=== PATIENT | female | born 1955 | race Caucasian/White ===

== ENCOUNTER 2017-01-04 12:11 | Inpatient (IN) | payer OTHER ==
[~2017-01-04] VITALS: Ht 167.6 cm; Wt 74.0 kg
[~2017-01-04 12:11] MED LIST: LEXA20TA PO; LISI-363 PO; PROT40TA PO
[2017-01-04 12:12] VITALS: BP 195/85; PULSE 52; RESP 24; TEMP 97.4; O2SAT 99
[2017-01-04 12:15] VITALS: BP 132/70; PULSE 64; RESP 24; O2SAT 91
[2017-01-04] MEDS ORDERED: PANT40TA3 PO (12:25)
[2017-01-04] MEDS ORDERED: FOLI400T PO (12:25)
[2017-01-04] MEDS ORDERED: METH5INJ (12:25)
[2017-01-04] MEDS ORDERED: ESCI20TA PO (12:27)
[2017-01-04] MEDS ORDERED: LISI-515 PO (12:27)
[2017-01-04] MEDS ORDERED: CHOL5000 PO (12:27)
[2017-01-04] MEDS ORDERED: HYDR39SU2 RECTAL (12:27)
[2017-01-04] MEDS ORDERED: SODIUM CHLOR 0.9% 1000 ML INJ 1,000 ML IV SCH (12:35)
--- NOTE | 2017-01-04 12:36 | PD ---
HPI Chief Complaint: GI Complaint Time Seen by Provider: 12:36 Travel History International Travel<30 days: No Contact w/Intl Traveler<30days: No Traveled to known affect area: No History of Present Illness HPI 61-year-old female presents to the emergency department via EMS for evaluation of nausea, vomiting, dizziness, severe abdominal pain that started 1 hour ago. She states she started started with dizziness about one hour ago which was consistent to prior vertigo that she has had in the past. She states that then she started with some paresthesias to her bilateral hands and feet. She states that then she started with nausea and abdominal pain. She states abdominal pain is diffuse. She denies a prior history of similar abdominal pain. She states she vomited times one in the ambulance. She received 4 mg of Zofran via EMS. Patient denies any chest pain, but does state that she feels short of breath. She does report a history of gastric bypass in [place] [address] Guallpa. Patient also reports history of gastric ulcers, hypertension, CVA in 1994 and , rheumatoid arthritis. Patient denies any diarrhea or constipation. She reports a normal bowel movement yesterday without blood in her stool. Patient also reports history of appendectomy and hysterectomy. Patient also does report a history of diverticulitis in the past. PFSH Past Medical History Depression: Yes Cancer: Yes (BCC) Cardiovascular Problems: No Cerebrovascular Accident: Yes Endocrine: No Gastrointestinal Disorders: Yes (GERD, DIVERTICULITIS, HX GALLBADDER PAIN) GERD: Yes Genitourinary: No Hepatitis: No Hiatal Hernia: Yes Hypertension: Yes Immune Disorder: Yes (R/A) Medical other: Yes (GENITAL HERPES) Musculoskeletal: Yes (R/A, KNEES) Neurologic: Yes (TIA) Psychiatric: Yes (DEPRESSION, ANXIETY) Reproductive: Yes (HYSTERECTOMY) Respiratory: Yes (MILD SLEEP APNEA) Immunizations Current: Yes Thyroid Disease: No Tetanus Vaccination: < 5 Years Influenza Vaccination: Yes Past Surgical History Abdominal Surgery: Yes (APPY) Appendectomy: Yes Gynecologic Surgery: Yes (HYSTERECTOMY) Hysterectomy: Yes Social History Alcohol Use: Yes (RARE) Tobacco Use: No Substance Use: No Allergies-Medications (Allergen,Severity, Reaction): Coded Allergies: Flagyl (Unverified Allergy, Severe, HEADACHE, 01/04/17) Sulfa (Verified Allergy, Severe, RASH, 01/04/17) Morphine (Verified Allergy, Mild, Headache, 01/04/17) Reported Meds & Prescriptions Reported Meds & Active Scripts Active Reported Vitamin D3 (Cholecalciferol) 5,000 Unit Cap 5,000 Units PO DAILY Hydrocortisone Acetate Supp 25 Mg Supp 25 Mg RECTAL BID Lisinopril 20 Mg Tab 20 Mg PO DAILY Escitalopram (Escitalopram Oxalate) 20 Mg Tab 20 Mg PO DAILY Folic Acid 400 Mcg Tab 400 Mcg PO DAILY Pantoprazole (Pantoprazole Sodium) 40 Mg Tab 40 Mg PO DAILY Methotrexate Inj 50 Mg/2 Ml Inj Review of Systems Except as stated in HPI: all other systems reviewed are Neg Physical Exam Narrative GENERAL: Well-developed well-nourished female patient. Afebrile. Patient is moaning in pain and holding her abdomen. SKIN: Warm and dry. HEAD: Normocephalic. Atraumatic. EYES: No scleral icterus. No injection or drainage. NECK: Supple, trachea midline. No JVD or lymphadenopathy. CARDIOVASCULAR: Regular rate and rhythm without murmurs, gallops, or rubs. RESPIRATORY: Breath sounds equal bilaterally. No accessory muscle use. Lungs sounds are clear to auscultation. GASTROINTESTINAL: Abdomen soft and nondistended. Patient has diffuse tenderness to palpation. MUSCULOSKELETAL: No cyanosis, or edema. BACK: Nontender without obvious deformity. No CVA tenderness. Data Data Last Documented VS Vital Signs Date Time Temp Pulse Resp B/P Pulse Ox O2 Delivery O2 Flow Rate FiO2 01/04/17 13:07 99 Room Air 01/04/17 12:15 64 24 132/70 01/04/17 12:12 97.4 Orders Complete Blood Count With Diff (01/04/17 12:35) Comprehensive Metabolic Panel (01/04/17 12:35) Lipase (01/04/17 12:35) Urinalysis - C+S If Indicated (01/04/17 12:35) Ct Abd/Pel W Iv Contrast(Rout) (01/04/17 12:35) Iv Access Insert/Monitor (01/04/17 12:35) Ecg Monitoring (01/04/17 12:35) Oximetry (01/04/17 12:35) Sodium Chlor 0.9% 1000 Ml Inj (Ns 1000 M (01/04/17 12:35) Sodium Chloride 0.9% Flush (Ns Flush) (01/04/17 12:45) Electrocardiogram (01/04/17 12:35) Creatine Kinase (Cpk) (01/04/17 12:37) Troponin I (01/04/17 12:37) Chest, Single Ap (01/04/17 ) Hydromorphone Pf Inj (Dilaudid Pf Inj) (01/04/17 12:45) Ondansetron Inj (Zofran Inj) (01/04/17 13:00) Iohexol 350 Inj (Omnipaque 350 Inj) (01/04/17 13:53) Labs Laboratory Tests Test 01/04/17 01/04/17 12:53 14:09 White Blood Count 6.3 TH/MM3 Red Blood Count 4.01 MIL/MM3 Hemoglobin 12.9 GM/DL Hematocrit 36.9 % Mean Corpuscular Volume 91.9 FL Mean Corpuscular Hemoglobin 32.0 PG Mean Corpuscular Hemoglobin 34.8 % Concent Red Cell Distribution Width 14.2 % Platelet Count 202 TH/MM3 Mean Platelet Volume 9.8 FL Neutrophils (%) (Auto) 80.8 % Lymphocytes (%) (Auto) 14.7 % Monocytes (%) (Auto) 3.9 % Eosinophils (%) (Auto) 0.3 % Basophils (%) (Auto) 0.3 % Neutrophils # (Auto) 5.1 TH/MM3 Lymphocytes # (Auto) 0.9 TH/MM3 Monocytes # (Auto) 0.2 TH/MM3 Eosinophils # (Auto) 0.0 TH/MM3 Basophils # (Auto) 0.0 TH/MM3 CBC Comment DIFF FINAL Differential Comment Sodium Level 142 MEQ/L Potassium Level 3.3 MEQ/L Chloride Level 108 MEQ/L Carbon Dioxide Level 23.2 MEQ/L Anion Gap 11 MEQ/L Blood Urea Nitrogen 14 MG/DL Creatinine 0.73 MG/DL Estimat Glomerular Filtration 81 ML/MIN Rate Random Glucose 117 MG/DL Calcium Level 9.0 MG/DL Total Bilirubin 0.7 MG/DL Aspartate Amino Transf 17 U/L (AST/SGOT) Alanine Aminotransferase 31 U/L (ALT/SGPT) Alkaline Phosphatase 109 U/L Total Creatine Kinase 39 U/L Troponin I LESS THAN 0.02 NG/ML Total Protein 6.5 GM/DL Albumin 3.9 GM/DL Lipase 119 U/L Urine Color YELLOW Urine Turbidity CLEAR Urine pH 6.5 Urine Specific [place] 1.026 Urine Protein NEG mg/dL Urine Glucose (UA) NEG mg/dL Urine Ketones 40 mg/dL Urine Occult Blood NEG Urine Nitrite NEG Urine Bilirubin NEG Urine Urobilinogen LESS THAN 2.0 MG/DL Urine Leukocyte Esterase SMALL Urine RBC 3 /hpf Urine WBC 2 /hpf Urine Squamous Epithelial <1 /hpf Cells Urine Bacteria RARE /hpf Urine Mucus FEW /lpf Microscopic Urinalysis Comment CULT NOT INDICATED MDM Medical Decision Making Medical Screen Exam Complete: Yes Emergency Medical Condition: Yes Medical Record Reviewed: Yes Interpretation(s) Abdomen/Pelvis CT 01/04/17 1235 Signed Impressions: Service Date/Time: Wednesday, January 04, 2017 13:42 - CONCLUSION: Sludge in the gallbladder. Mild induration of fatty tissues adjacent to minimally distended small bowel loop in the right pelvis and minimal dependent free pelvic fluid. This could potentially be an inflammatory process of bowel or an early obstructive process. Clinical and imaging followup recommended as appropriate. Wesley Cruz MD Chest X-Ray 01/04/17 0000 Signed Impressions: Service Date/Time: Wednesday, January 04, 2017 13:28 - CONCLUSION: No acute disease. Jeferson Blackmon MD Differential Diagnosis Diverticulitis versus small bowel obstruction versus UTI versus gastroenteritis versus electrolyte abnormality versus pyelonephritis Narrative Course 61-year-old female presents to the emergency department via EMS for evaluation of dizziness, paresthesias to her hands and feet, shortness of breath, severe abdominal pain, nausea. EKG, CBC, CMP, lipase, UA, CK, troponin are ordered and pending. CT the abdomen/pelvis with IV contrast and chest x-ray ordered and pending. According to the chart, the patient does have allergy to morphine. She states it gives her a headache. Patient denies any anaphylactic reaction. IV access established. Patient is given Dilaudid 0.5 mg IV, Zofran 4 mg IV, normal saline 1 L IV bolus. EKG shows sinus bradycardia, no ST elevation. CBC shows no acute abnormality. CMP with hypokalemia 3.3, glucose 117. Lipase is 119. CK is 39. Troponin is less than 0.02. UA shows small leukocyte esterase. Chest x-ray shows no acute disease. CT abdomen/pelvis shows sludge in the gallbladder; mild induration of fatty tissues adjacent to minimally distended small bowel loop in the right pelvis and minimal dependent free pelvic fluid. This could potentially be an inflammatory process of bowel or an early obstructive process. Clinical and imaging followup recommended as appropriate. I discussed the case with my attending physician, Dr. Bueno, who also examined the patient. The patient will be brought into the hospital for 23 hour observation for early small bowel obstruction. The patient is agreeable. Dr. Biggs accepted admission. Diagnosis Primary Impression: Small bowel obstruction Admitting Information Admitting Physician Requests: Observation Vanesa Ivory Jan 04, 2017 12:36
[2017-01-04] MEDS ORDERED: HYDROmorphone HCL PF 1 MG/ML VIAL IVS ONE (12:45)
[2017-01-04] MEDS ORDERED: SODIUM CHLORIDE 0.9% FLUSH 5 ML FLUSH IVF PRN (12:45)
[2017-01-04] MEDS ORDERED: ONDANSETRON HCL 4 MG/2 ML VIAL IV PUSH ONE (13:00)
[2017-01-04 13:07] VITALS: O2SAT 99
[2017-01-04 13:09] LABS: AUTOMATED NEUTROPHIL # 5.1 TH/MM3 (1.8-7.7); BASOPHIL % 0.3 % (0.0-2.0); EOSINOPHIL % 0.3 % (0.0-4.0); HEMATOCRIT 36.9 % (35.0-46.0); HEMO FLAGS DIFF FINAL; LYMPH % 14.7 % (9.0-44.0); LYMPHOCYTE # 0.9 TH/MM3 (1.0-4.8); MEAN CELL VOLUME 91.9 FL (80.0-100.0); MEAN CORPUSCULAR HGB CONC 34.8 % (32.0-36.0); MONO % 3.9 % (0.0-8.0); NEUT % 80.8 % (16.0-70.0); PLATELET COUNT 202 TH/MM3 (150-450); RED BLOOD COUNT 4.01 MIL/MM3 (4.00-5.30); RED CELL DISTRIBUTION WIDTH 14.2 % (11.6-17.2); WHITE BLOOD COUNT 6.3 TH/MM3 (4.0-11.0)
[2017-01-04 13:29] LABS: ALT (GPT) 31 U/L (10-53); ANION GAP 11 MEQ/L (5-15); AST (GOT) 17 U/L (15-37); BICARBONATE 23.2 MEQ/L (21.0-32.0); BLOOD UREA NITROGEN 14 MG/DL (7-18); CHLORIDE 108 MEQ/L (98-107); GLOMERULAR FILTRATION RATE 81 ML/MIN (>89); POTASSIUM 3.3 MEQ/L (3.5-5.1); SODIUM (NA) 142 MEQ/L (136-145)
[2017-01-04 13:32] LABS: ALKALINE PHOSPHATASE 109 U/L (45-117); TOTAL BILIRUBIN ADULT 0.7 MG/DL (0.2-1.0)
[2017-01-04 13:41] LABS: CREATINE KINASE 39 U/L (26-192)
--- NOTE | 2017-01-04 13:50 | RADRPT ---
EXAM DATE/TIME: 01/04/2017 13:28 [facility] COMPARISON: No previous studies available for comparison. INDICATIONS : Shortness of breath. MEDICAL HISTORY : None. SURGICAL HISTORY : None. ENCOUNTER: Initial ACUITY: 1 day PAIN SCORE: 0/10 LOCATION: Bilateral chest FINDINGS: A single view of the chest demonstrates the lungs to be symmetrically aerated without evidence of mas s, infiltrate or effusion. The cardiomediastinal contours are unremarkable. Osseous structures are intact. CONCLUSION: No acute disease. Jeferson Blackmon MD on January 04, 2017 at 13:49 Board Certified Radiologist. This report was verified electronically.
[2017-01-04] MEDS ORDERED: IOHEXOL 350 MG/ML 10 ML VIAL (for RAD DIAG) IV ONE (13:53)
[2017-01-04 14:30] LABS: BACTERIA, URINE RARE /hpf; BLOOD, URINE NEG (NEG); COMMENT (UR) CULT NOT INDICATED; CULTURE IF INDICATED CULT NOT INDICATED; GLUCOSE,URINE NEG (NEG); KETONE, URINE 40 mg/dL (NEG); MUCUS URINE FEW /lpf (OCC); NITRITE,URINE NEG (NEG); PH, URINE 6.5 (5.0-8.5); SQUAMOUS EPITHELIAL CELL URINE <1 /hpf (0-5); URINE COLOR YELLOW (YELLW/STRAW)
--- NOTE | 2017-01-04 15:10 | RADRPT ---
EXAM DATE/TIME: 01/04/2017 13:42 [facility] COMPARISON: CT ABDOMEN & PELVIS W CONTRAST, September 15, 2012, 15:08. INDICATIONS : Nausea and vomiting, weakness and dizziness. IV CONTRAST: 95 cc Omnipaque 350 (iohexol) IV ORAL CONTRAST: No oral contrast ingested. RADIATION DOSE: 9.96 CTDIvol (mGy) MEDICAL HISTORY : Stroke. Gastroesophageal reflux disease. Hypertension.Rheumatoid arthritis. SURGICAL HISTORY : Appendectomy. Hysterectomy. ENCOUNTER: Initial ACUITY: 1 day PAIN SCALE: 0/10 LOCATION: abdomen. TECHNIQUE: Volumetric scanning of the abdomen and pelvis was performed. Using automated exposure control and ad justment of the mA and/or kV according to patient size, radiation dose was kept as low as reasonably achievable to obtain optimal diagnostic quality images. FINDINGS: LOWER LUNGS: The visualized lower lungs are clear. LIVER: Homogeneous density without lesion. There is no dilation of the biliary tree. No calcified gallston es. Layering sludge in the gallbladder SPLEEN: Normal size without lesion. PANCREAS: Within normal limits. KIDNEYS: Small bilateral renal cysts. ADRENAL GLANDS: Within normal limits. VASCULAR: There is no aortic aneurysm. BOWEL/MESENTERY: Evidence of previous gastric surgery. The small bowel is nondilated. There is a loop in the low right pelvis which is notable for slight adjacent induration and there is minimal adjacent free pelvic flu id. The colon is normal in caliber throughout with occasional diverticula present. There is no eviden ce of extraluminal gas. ABDOMINAL WALL: Within normal limits. RETROPERITONEUM: There is no lymphadenopathy. BLADDER: No wall thickening or mass. REPRODUCTIVE: Uterus surgically absent. INGUINAL: There is no lymphadenopathy or hernia. MUSCULOSKELETAL: Degenerative changes in the spine. CONCLUSION: Sludge in the gallbladder. Mild induration of fatty tissues adjacent to minimally distended small bowel loop in the right pelvis and minimal dependent free pelvic fluid. This could potentially be an inflammatory process of bowel or an early obstructive process. Clinical and imaging followup recommended as appropriate. Wesley Cruz MD on January 04, 2017 at 14:18 Board Certified Radiologist. This report was verified electronically.
--- NOTE | 2017-01-04 16:15 | PD ---
Data Data Last Documented VS Vital Signs Date Time Temp Pulse Resp B/P Pulse Ox O2 Delivery O2 Flow Rate FiO2 01/04/17 13:07 99 Room Air 01/04/17 12:15 64 24 132/70 01/04/17 12:12 97.4 Orders Complete Blood Count With Diff (01/04/17 12:35) Comprehensive Metabolic Panel (01/04/17 12:35) Lipase (01/04/17 12:35) Urinalysis - C+S If Indicated (01/04/17 12:35) Ct Abd/Pel W Iv Contrast(Rout) (01/04/17 12:35) Iv Access Insert/Monitor (01/04/17 12:35) Ecg Monitoring (01/04/17 12:35) Oximetry (01/04/17 12:35) Sodium Chlor 0.9% 1000 Ml Inj (Ns 1000 M (01/04/17 12:35) Sodium Chloride 0.9% Flush (Ns Flush) (01/04/17 12:45) Electrocardiogram (01/04/17 12:35) Creatine Kinase (Cpk) (01/04/17 12:37) Troponin I (01/04/17 12:37) Chest, Single Ap (01/04/17 ) Hydromorphone Pf Inj (Dilaudid Pf Inj) (01/04/17 12:45) Ondansetron Inj (Zofran Inj) (01/04/17 13:00) Iohexol 350 Inj (Omnipaque 350 Inj) (01/04/17 13:53) Admit Order (Ed Use Only) (01/04/17 15:49) Diet Npo Except Meds (01/04/17 Dinner) Place In Observation (01/04/17 ) Activity Oob With Assistance (01/04/17 15:52) Scd Bilateral/Knee High CRISTINA.QSHIFT (01/04/17 15:52) Vital Signs (Adult) CRISTINA.Q4H (01/04/17 15:52) Labs Laboratory Tests Test 01/04/17 01/04/17 12:53 14:09 White Blood Count 6.3 TH/MM3 Red Blood Count 4.01 MIL/MM3 Hemoglobin 12.9 GM/DL Hematocrit 36.9 % Mean Corpuscular Volume 91.9 FL Mean Corpuscular Hemoglobin 32.0 PG Mean Corpuscular Hemoglobin 34.8 % Concent Red Cell Distribution Width 14.2 % Platelet Count 202 TH/MM3 Mean Platelet Volume 9.8 FL Neutrophils (%) (Auto) 80.8 % Lymphocytes (%) (Auto) 14.7 % Monocytes (%) (Auto) 3.9 % Eosinophils (%) (Auto) 0.3 % Basophils (%) (Auto) 0.3 % Neutrophils # (Auto) 5.1 TH/MM3 Lymphocytes # (Auto) 0.9 TH/MM3 Monocytes # (Auto) 0.2 TH/MM3 Eosinophils # (Auto) 0.0 TH/MM3 Basophils # (Auto) 0.0 TH/MM3 CBC Comment DIFF FINAL Differential Comment Sodium Level 142 MEQ/L Potassium Level 3.3 MEQ/L Chloride Level 108 MEQ/L Carbon Dioxide Level 23.2 MEQ/L Anion Gap 11 MEQ/L Blood Urea Nitrogen 14 MG/DL Creatinine 0.73 MG/DL Estimat Glomerular Filtration 81 ML/MIN Rate Random Glucose 117 MG/DL Calcium Level 9.0 MG/DL Total Bilirubin 0.7 MG/DL Aspartate Amino Transf 17 U/L (AST/SGOT) Alanine Aminotransferase 31 U/L (ALT/SGPT) Alkaline Phosphatase 109 U/L Total Creatine Kinase 39 U/L Troponin I LESS THAN 0.02 NG/ML Total Protein 6.5 GM/DL Albumin 3.9 GM/DL Lipase 119 U/L Urine Color YELLOW Urine Turbidity CLEAR Urine pH 6.5 Urine Specific [place] 1.026 Urine Protein NEG mg/dL Urine Glucose (UA) NEG mg/dL Urine Ketones 40 mg/dL Urine Occult Blood NEG Urine Nitrite NEG Urine Bilirubin NEG Urine Urobilinogen LESS THAN 2.0 MG/DL Urine Leukocyte Esterase SMALL Urine RBC 3 /hpf Urine WBC 2 /hpf Urine Squamous Epithelial <1 /hpf Cells Urine Bacteria RARE /hpf Urine Mucus FEW /lpf Microscopic Urinalysis Comment CULT NOT INDICATED MDM Supervised Visit with LUCIA: Yes Narrative Course The history, exam, and medical decision-making in the associated midlevel provider note were completed with my assistance. I reviewed and agree with the findings presented. I attest that I had a [id number] encounter with the patient on the same day, and personally performed and documented my assessment and findings in the medical record. *My assessment and Findings: This is a 61-year-old female who has a history of multiple abdominal surgeries including recent Nanda-en-Y by Dr. Ashford last year who presents to the emergency department with fairly sudden onset abdominal pain, nausea and vomiting. She says she had a normal bowel movement yesterday evening. The patient is quite tender in her lower abdomen. CT scan was obtained which demonstrates inflammation versus a possible early obstruction. I think it's reasonable to keep the patient for observation, serial exams and bowel rest to ensure that she improves given the degree of discomfort she was in when she arrived. Diagnosis Primary Impression: Small bowel obstruction Emelina Bueno MD Jan 04, 2017 16:15
--- NOTE | 2017-01-04 16:16 | HHI.HP ---
HPI Service [facility] Hospitalists Primary Care Physician Baltazar Smith MD Admission Diagnosis early small bowel obstruction, abdominal pain Chief Complaint: Abdominal pain Travel History International Travel<30 Days: No Contact w/Intl Traveler <30 Da: No Traveled to Known Affected Are: No History of Present Illness Ms. Mckeon is a pleasant 61 y/o WF with HTN, rheumatoid arthritis, hx of CVA in 1993 and 1994 without residual effects, and previous laparoscopic Nanda-en-Y gastric bypass in 04/2016. She states that she was in her usual state of health until after her breakfast this morning which was a protein shake she started having generalized abdominal cramping. She states that she became nauseated and had one episode of vomiting. Pt had some dizziness which resolved after about an hour. She had a normal BM last night. Denies any melena, BRBPR, or recent constipation. She denies any ill contacts or recent travel. She denies any medication changes recently. Pt had a CT Abd/pelvis in the ER which noted sludge in the gallbladder and mild induration of fatty tissues adjacent to minimally distended small bowel loop in the right pelvis and minimal dependent free pelvic fluid, which could potentially be an inflammatory process of bowel or an early obstructive process. Pt has not had any further vomiting since the one episode but she has had some dry heaving. She was given Dilaudid and Zofran in the ER with improvement in her pain. She states that currently her pain is 5/ 10 and she is having some nausea. Review of Systems Constitutional: DENIES: Fever, Chills Eyes: DENIES: Vision loss Ears, nose, mouth, throat: DENIES: Hearing loss Respiratory: DENIES: Cough, Shortness of breath Cardiovascular: DENIES: Chest pain, Dyspnea on Exertion, Lower Extremity Edema Gastrointestinal: COMPLAINS OF: Abdominal pain, Nausea, Vomiting, DENIES: Black stools, Bloody stools, Constipation, Diarrhea, Reflux Genitourinary: DENIES: Urinary frequency, Hematuria, Dysuria Musculoskeletal: DENIES: Joint pain Integumentary: DENIES: Rash Neurologic: DENIES: Abnormal gait, Headache Psychiatric: DENIES: Confusion Past Family Social History Past Medical History Hypertension Hyperlipidemia GERD Impaired fasting glucose Chronic recurrent major depression CKD, stage 2 Fatty liver Vitamin D deficiency Morbid obesity s/p laparoscopic Nanda-en-Y gastric bypass on 04-13-16 Rheumatoid arthritis Hx of CVA in 1993 and 1994 with no residual effects per the pt Past Surgical History Laparoscopic Nanda-en-Y gastric bypass on 04/13/[address] Johansen. Appendectomy NEHEMIAS with BSO Skin cancer removal Reported Medications -Vitamin D3 10,000 Units PO DAILY -Hydrocortisone Acetate Supp 25 Mg Supp 25 Mg RECTAL BID PRN --Lisinopril 10 Mg PO DAILY -Escitalopram 20 Mg PO DAILY -Folic Acid 400 Mcg PO DAILY -Pantoprazole 40 Mg PO DAILY -Methotrexate Inj 50 Mg/2 Ml Inj 0.8mL Qweekly Allergies: Coded Allergies: Flagyl (Unverified Allergy, Severe, HEADACHE, 01/04/17) Sulfa (Verified Allergy, Severe, RASH, 01/04/17) Morphine (Verified Allergy, Mild, Headache, 01/04/17) Family History Mother with hx of COPD, CHF, dementia Father from esophageal cancer at age 69 Social History Denies any tobacco or illicit drug use Occasional social alcohol use Physical Exam Vital Signs Vital Signs Date Time Temp Pulse Resp B/P Pulse Ox O2 Delivery O2 Flow Rate FiO2 01/04/17 13:07 99 Room Air 01/04/17 12:15 64 24 132/70 91 Room Air 01/04/17 12:12 97.4 52 24 195/85 99 Physical Exam GENERAL: This is a well-nourished, well-developed patient, in no apparent distress. HEENT: Atraumatic. Normocephalic. No temporal or scalp tenderness. No scleral icterus. Airway patent. NECK: Trachea midline, supple, nontender. CARDIO: Regular. RESP: CTA bilaterally. No wheezes, rales, or rhonchi. ABD: +BS, soft, left sided tenderness, nondistended. EXT: Extremities without clubbing, cyanosis, or edema. NEURO: Awake and alert. Motor and sensory grossly within normal limits. Normal speech. Laboratory Laboratory Tests Test 01/04/17 01/04/17 12:53 14:09 White Blood Count 6.3 Red Blood Count 4.01 Hemoglobin 12.9 Hematocrit 36.9 Mean Corpuscular Volume 91.9 Mean Corpuscular Hemoglobin 32.0 Mean Corpuscular Hemoglobin 34.8 Concent Red Cell Distribution Width 14.2 Platelet Count 202 Mean Platelet Volume 9.8 Neutrophils (%) (Auto) 80.8 Lymphocytes (%) (Auto) 14.7 Monocytes (%) (Auto) 3.9 Eosinophils (%) (Auto) 0.3 Basophils (%) (Auto) 0.3 Neutrophils # (Auto) 5.1 Lymphocytes # (Auto) 0.9 Monocytes # (Auto) 0.2 Eosinophils # (Auto) 0.0 Basophils # (Auto) 0.0 CBC Comment DIFF FINAL Differential Comment Sodium Level 142 Potassium Level 3.3 Chloride Level 108 Carbon Dioxide Level 23.2 Anion Gap 11 Blood Urea Nitrogen 14 Creatinine 0.73 Estimat Glomerular Filtration 81 Rate Random Glucose 117 Calcium Level 9.0 Total Bilirubin 0.7 Aspartate Amino Transf 17 (AST/SGOT) Alanine Aminotransferase 31 (ALT/SGPT) Alkaline Phosphatase 109 Total Creatine Kinase 39 Troponin I LESS THAN 0.02 Total Protein 6.5 Albumin 3.9 Lipase 119 Urine Color YELLOW Urine Turbidity CLEAR Urine pH 6.5 Urine Specific [place] 1.026 Urine Protein NEG Urine Glucose (UA) NEG Urine Ketones 40 Urine Occult Blood NEG Urine Nitrite NEG Urine Bilirubin NEG Urine Urobilinogen LESS THAN 2.0 Urine Leukocyte Esterase SMALL Urine RBC 3 Urine WBC 2 Urine Squamous Epithelial <1 Cells Urine Bacteria RARE Urine Mucus FEW Microscopic Urinalysis Comment CULT NOT INDICATED Result Diagram: 01/04/17 1253 01/04/17 1253 Imaging Last Impressions Abdomen/Pelvis CT 01/04/17 1235 Signed Impressions: Service Date/Time: Wednesday, January 04, 2017 13:42 - CONCLUSION: Sludge in the gallbladder. Mild induration of fatty tissues adjacent to minimally distended small bowel loop in the right pelvis and minimal dependent free pelvic fluid. This could potentially be an inflammatory process of bowel or an early obstructive process. Clinical and imaging followup recommended as appropriate. Wesley Cruz MD Chest X-Ray 01/04/17 0000 Signed Impressions: Service Date/Time: Wednesday, January 04, 2017 13:28 - CONCLUSION: No acute disease. Jeferson Blackmon MD Septic Shock Reassessment Heart: Regular rate and rhythm Lungs: Clear Skin: Warm Peripheral Pulses: Bounding Right Radial Bounding Left Radial Bounding Right Popliteal Bounding Left Popliteal Bounding Right Dorsalis Pedis Bounding Left Dorsalis Pedis Bounding Right Posterior Tibial Bounding Left Posterior Tibial Capillary Refill: <2 seconds Assessment and Plan Problem List: (1) Abdominal pain Status: Acute Plan: - Pt with hx of Nanda-en-Y gastric bypass in 04/2016 who presented to the ED on with abdominal pain and nausea/vomiting. - CT Abd/pelvis (01/04) --> Sludge in the gallbladder and mild induration of fatty tissues adjacent to minimally distended small bowel loop in the right pelvis and minimal dependent free pelvic fluid. This could potentially be an inflammatory process of bowel or an early obstructive process. - Consult General Surgery - NPO except meds - IVF - Zofran PRN - Pain control PRN - KUB in AM - Repeat labs in AM - DVT prophylaxis with SCDs (2) HTN (hypertension) Status: Chronic Plan: - Cont. home meds - Clonidine PRN (3) Rheumatoid arthritis Status: Chronic Plan: - Hold Methotrexate Assessment and Plan Patient examined. Assessment and plan formulated with Karen Chao PA-C. I agree with the above. rlq pain/vomiting. ct shows rlq induration and ?early psbo. ?infectious vs obstructive. ivf. clears. kub in AM. cont abx. consult her gen surg. Karen Caho Jan 04, 2017 16:16 Billy Clark MD Jan 04, 2017 17:14
[2017-01-04] MEDS ORDERED: ONDANSETRON HCL 4 MG/2 ML VIAL IV PRN (16:45)
[2017-01-04] MEDS ORDERED: cloNIDine HCL 0.1 MG TAB PO PRN (17:00)
[2017-01-04] MEDS: ONDANSETRON HCL 4 MG/2 ML VIAL IV PRN ×2 (17:21→21:47)
[2017-01-04] MEDS: LEVOFLOXACIN 500 MG PREMIX INJ 100 ML IV SCH (17:42)
[2017-01-04] MEDS: NS + KCL 20 MEQ INJ 1,000 ML IV SCH (17:43)
[2017-01-04] MEDS: HYDROmorphone HCL PF 1 MG/ML VIAL IV PUSH PRN ×2 (17:43→21:49)
[2017-01-04 17:50] VITALS: BP 130/77
[2017-01-04 19:34] VITALS: BP 121/62; PULSE 61; RESP 20; TEMP 98.4; O2SAT 98
--- NOTE | 2017-01-04 23:11 | EKG ---
Date Performed: 01/04/2017 Time Performed: 12:59:06 PTAGE: 61 years EKG: SINUS BRADYCARDIA MODERATE INTRAVENTRICULAR CONDUCTION DELAY MODERATE ST DEPRESSION ABNORMA L ECG PREVIOUS TRACING : 09/15/2012 11.33 Compared to the previous tracing, rate has decreased DOCTOR: Tip Bowie Interpretating Date/Time 01/04/2017 23:11:15
[2017-01-05] VITALS (7 sets, daily range): BP systolic 123–159; BP diastolic 58–76; PULSE 60–70; RESP 17–20; TEMP 96.8–99; O2SAT 94–98
[2017-01-05] MEDS: NS + KCL 20 MEQ INJ 1,000 ML IV SCH ×3 (03:00→14:39)
[2017-01-05] MEDS: HYDROmorphone HCL PF 1 MG/ML VIAL IV PUSH PRN ×3 (05:00→14:38)
[2017-01-05] MEDS: ONDANSETRON HCL 4 MG/2 ML VIAL IV PRN ×3 (05:00→14:39)
--- NOTE | 2017-01-05 06:32 | RADRPT ---
EXAM DATE/TIME: 01/05/2017 05:49 [place] COMPARISON: CT ABDOMEN & PELVIS W CONTRAST, January 04, 2017, 13:42. INDICATIONS : Nausea and vomiting, weakness and dizziness. MEDICAL HISTORY : Stroke. Gastroesophageal reflux disease. Hypertension.Rheumatoid arthritis. SURGICAL HISTORY : Appendectomy. Hysterectomy. ENCOUNTER: Subsequent ACUITY: 2 days PAIN SCORE: 4/10 LOCATION: Bilateral Abdomen. FINDINGS: Supine view of the abdomen was performed. Air is seen within small bowel in the midline lower abdome n, however and significantly distended bowel is not clearly seen. No abnormal masses, calcifications , or organomegaly is seen. Surgical clips are seen in the left upper quadrant. Contrast is seen in t he bladder from prior CT examination. Spurs are seen in the spine. CONCLUSION: No acute disease. Wesley Wilkinson MD on January 05, 2017 at 6:28 Board Certified Radiologist. This report was verified electronically.
[2017-01-05 08:02] LABS: AUTOMATED NEUTROPHIL # 4.3 TH/MM3 (1.8-7.7); BASOPHIL % 0.6 % (0.0-2.0); EOSINOPHIL % 0.7 % (0.0-4.0); HEMO FLAGS DIFF FINAL; LYMPH % 24.8 % (9.0-44.0); LYMPHOCYTE # 1.5 TH/MM3 (1.0-4.8); MEAN CELL VOLUME 93.4 FL (80.0-100.0); MEAN CORPUSCULAR HEMOGLOBIN 31.6 PG (27.0-34.0); MEAN CORPUSCULAR HGB CONC 33.8 % (32.0-36.0); MONO % 4.5 % (0.0-8.0); NEUT % 69.4 % (16.0-70.0); PLATELET COUNT 195 TH/MM3 (150-450); RED BLOOD COUNT 4.07 MIL/MM3 (4.00-5.30); RED CELL DISTRIBUTION WIDTH 14.7 % (11.6-17.2); WHITE BLOOD COUNT 6.1 TH/MM3 (4.0-11.0)
[2017-01-05 08:16] LABS: BICARBONATE 27.1 MEQ/L (21.0-32.0); MAGNESIUM 1.9 MG/DL (1.5-2.5); POTASSIUM 3.7 MEQ/L (3.5-5.1)
[2017-01-05] MEDS: LISINOPRIL 10 MG TAB PO SCH (08:56)
[2017-01-05] MEDS: ESCITALOPRAM OXALATE 20 MG TAB PO SCH (08:56)
[2017-01-05] MEDS: ACETAMINOPHEN 325 MG TAB PO PRN ×2 (08:58→14:38)
--- NOTE | 2017-01-05 11:33 | HHI.PR ---
Subjective Remarks Pt reports that she still had some nausea this morning Pain is currently controlled with pain meds She is not passing any gas. Pt reportedly had some broth last night and had some nausea after that Objective Vitals Vital Signs Date Time Temp Pulse Resp B/P Pulse Ox O2 Delivery O2 Flow Rate FiO2 01/05/17 07:54 99.0 62 20 133/62 98 01/05/17 03:58 97.4 63 20 159/76 98 01/05/17 00:14 98.3 64 20 123/58 98 01/04/17 19:34 98.4 61 20 121/62 98 01/04/17 17:50 130/77 01/04/17 13:07 99 Room Air 01/04/17 12:15 64 24 132/70 91 Room Air 01/04/17 12:12 97.4 52 24 195/85 99 Result Diagram: 01/05/1771101/05/17711 Other Results Laboratory Tests Test 01/04/17 01/04/17 01/05/17 12:53 14:09 07:12 White Blood Count 6.3 TH/MM3 6.1 TH/MM3 Red Blood Count 4.01 MIL/MM3 4.07 MIL/MM3 Hemoglobin 12.9 GM/DL 12.8 GM/DL Hematocrit 36.9 % 38.0 % Mean Corpuscular Volume 91.9 FL 93.4 FL Mean Corpuscular Hemoglobin 32.0 PG 31.6 PG Mean Corpuscular Hemoglobin 34.8 % 33.8 % Concent Red Cell Distribution Width 14.2 % 14.7 % Platelet Count 202 TH/MM3 195 TH/MM3 Mean Platelet Volume 9.8 FL 10.0 FL Neutrophils (%) (Auto) 80.8 % 69.4 % Lymphocytes (%) (Auto) 14.7 % 24.8 % Monocytes (%) (Auto) 3.9 % 4.5 % Eosinophils (%) (Auto) 0.3 % 0.7 % Basophils (%) (Auto) 0.3 % 0.6 % Neutrophils # (Auto) 5.1 TH/MM3 4.3 TH/MM3 Lymphocytes # (Auto) 0.9 TH/MM3 1.5 TH/MM3 Monocytes # (Auto) 0.2 TH/MM3 0.3 TH/MM3 Eosinophils # (Auto) 0.0 TH/MM3 0.0 TH/MM3 Basophils # (Auto) 0.0 TH/MM3 0.0 TH/MM3 CBC Comment DIFF FINAL DIFF FINAL Differential Comment Sodium Level 142 MEQ/L 142 MEQ/L Potassium Level 3.3 MEQ/L 3.7 MEQ/L Chloride Level 108 MEQ/L 108 MEQ/L Carbon Dioxide Level 23.2 MEQ/L 27.1 MEQ/L Anion Gap 11 MEQ/L 7 MEQ/L Blood Urea Nitrogen 14 MG/DL 11 MG/DL Creatinine 0.73 MG/DL 0.63 MG/DL Estimat Glomerular Filtration 81 ML/MIN 95 ML/MIN Rate Random Glucose 117 MG/DL 76 MG/DL Calcium Level 9.0 MG/DL 9.0 MG/DL Total Bilirubin 0.7 MG/DL Aspartate Amino Transf 17 U/L (AST/SGOT) Alanine Aminotransferase 31 U/L (ALT/SGPT) Alkaline Phosphatase 109 U/L Total Creatine Kinase 39 U/L Troponin I LESS THAN 0.02 NG/ML Total Protein 6.5 GM/DL Albumin 3.9 GM/DL Lipase 119 U/L Urine Color YELLOW Urine Turbidity CLEAR Urine pH 6.5 Urine Specific [place] 1.026 Urine Protein NEG mg/dL Urine Glucose (UA) NEG mg/dL Urine Ketones 40 mg/dL Urine Occult Blood NEG Urine Nitrite NEG Urine Bilirubin NEG Urine Urobilinogen LESS THAN 2.0 MG/DL Urine Leukocyte Esterase SMALL Urine RBC 3 /hpf Urine WBC 2 /hpf Urine Squamous Epithelial <1 /hpf Cells Urine Bacteria RARE /hpf Urine Mucus FEW /lpf Microscopic Urinalysis Comment CULT NOT INDICATED Magnesium Level 1.9 MG/DL Imaging Last Impressions Abdomen X-Ray 01/05/17 0600 Signed Impressions: Service Date/Time: December 05:49 - CONCLUSION: No acute disease. Wesley Wilkinson MD Abdomen/Pelvis CT 01/04/17 1235 Signed Impressions: Service Date/Time: Wednesday, January 04, 2017 13:42 - CONCLUSION: Sludge in the gallbladder. Mild induration of fatty tissues adjacent to minimally distended small bowel loop in the right pelvis and minimal dependent free pelvic fluid. This could potentially be an inflammatory process of bowel or an early obstructive process. Clinical and imaging followup recommended as appropriate. Wesley Cruz MD Chest X-Ray 01/04/17 0000 Signed Impressions: Service Date/Time: Wednesday, January 04, 2017 13:28 - CONCLUSION: No acute disease. Jeferson Blackmon MD Objective Remarks General: NAD, AAOx3 Chest: CTA bilaterally Cardiac: regular Abd: +BS, soft nondistended, mild lower pelvic tenderness, no guarding or rebound Ext: No edema A/P Problem List: (1) Abdominal pain Status: Acute Plan: - Pt with hx of Nanda-en-Y gastric bypass in 04/2016 who presented to the ED on with abdominal pain and nausea/vomiting. - CT Abd/pelvis (01/04) --> Sludge in the gallbladder and mild induration of fatty tissues adjacent to minimally distended small bowel loop in the right pelvis and minimal dependent free pelvic fluid. This could potentially be an inflammatory process of bowel or an early obstructive process. - NPO except meds - IVF - Zofran PRN - Pain control PRN - KUB (01/05) --> No acute disease - Await General Surgery consultation - Repeat labs in AM - DVT prophylaxis with SCDs (2) HTN (hypertension) Status: Chronic Plan: - Cont. home meds - Clonidine PRN (3) Rheumatoid arthritis Status: Chronic Plan: - Hold Methotrexate Assessment and Plan Patient examined. Assessment and plan formulated with Karen Chao PA-C. I agree with the above. possible early obstruction on CT. npo. gen surg consult. less bowel sounds today. no flatus or bm. ivf for now. cont abx. Karen Chao Jan 05, 2017 11:32 Billy Clark MD Jan 05, 2017 11:48
[2017-01-05] MEDS ORDERED: PROPOFOL 200 MG/20 ML AMP IV ONE (12:00)
[2017-01-05] MEDS ORDERED: ePHEDrine/NS 25 MG/5 ML SYR IV ONE (12:00)
[2017-01-05] MEDS ORDERED: NORMOSOL R INJ 1,000 ML IV ONE (12:00)
[2017-01-05] MEDS ORDERED: ONDANSETRON HCL 4 MG/2 ML VIAL IV PUSH ONE (12:00)
[2017-01-05] MEDS ORDERED: CLINDAMYCIN INJ 600 MG in SODIUM CHLORIDE 0.9% INJ 100 ML IV SCH (16:45)
[2017-01-05] MEDS ORDERED: BUPIVACAINE/EPINEPHRINE 0.25% PF 30 ML VIAL ONE (17:34)
[2017-01-05] MEDS ORDERED: DICLOFENAC SODIUM 37.5 MG/ML VIAL IV PUSH ONE (17:59)
[2017-01-05] MEDS ORDERED: SUGAMMADEX SODIUM 200 MG/2 ML VIAL IV PUSH ONE ×2 (17:59)
[2017-01-05] MEDS ORDERED: ACETAMINOPHEN 1000 MG/100 ML VIAL IV ONE (17:59)
[2017-01-05] MEDS ORDERED: FAMOTIDINE 20 MG/2 ML VIAL ONE (18:01)
[2017-01-05] MEDS ORDERED: MIDAZOLAM HCL 2 MG/2 ML VIAL ONE (18:01)
[2017-01-05] MEDS ORDERED: DEXAMETHASONE SOD PHOS 4 MG/ML VIAL ONE (18:01)
[2017-01-05] MEDS ORDERED: METOCLOPRAMIDE HCL 10 MG/2 ML VIAL IVS PRN (19:15)
[2017-01-05] MEDS ORDERED: ACETAMINOPHEN/HYDROcodone 325 MG/5 MG TAB PO PRN (19:15)
[2017-01-05] MEDS ORDERED: SODIUM CHLORIDE 0.9% FLUSH 5 ML FLUSH IVF PRN (19:15)
[2017-01-05] MEDS ORDERED: HYDROmorphone HCL PF 1 MG/ML VIAL IV PRN (19:15)
[2017-01-05] MEDS ORDERED: ONDANSETRON HCL 4 MG/2 ML VIAL IV PRN (19:15)
[2017-01-05] MEDS ORDERED: Post-op Orders (for Pharmacy) MISC XX ONE (19:15)
[2017-01-05] MEDS ORDERED: fentaNYL CITRATE 250 MCG/5 ML AMP ONE (19:32)
[2017-01-05] MEDS: SODIUM CHLOR 0.9% 1000 ML INJ 1,000 ML IV SCH (19:45)
[2017-01-05] MEDS: SODIUM CHLORIDE 0.9% FLUSH 5 ML FLUSH IVF SCH (19:51)
[2017-01-05] MEDS: LEVOFLOXACIN 500 MG PREMIX INJ 100 ML IV SCH (19:55)
[2017-01-05] MEDS ORDERED: DO NOT ADM ANY ANTICOAGULANT DRUGS XX PRN (20:15)
[2017-01-05] MEDS: CLINDAMYCIN INJ 600 MG in SODIUM CHLORIDE 0.9% INJ 50 ML IV SCH (23:55)
[2017-01-06 04:10] VITALS: BP 131/59; PULSE 71; RESP 20; TEMP 97.3; O2SAT 97
[2017-01-06] MEDS: SODIUM CHLOR 0.9% 1000 ML INJ 1,000 ML IV SCH (04:58)
[2017-01-06 05:41] LABS: BASOPHIL % 0.3 % (0.0-2.0); EOSINOPHIL % 0.2 % (0.0-4.0); HEMATOCRIT 33.7 % (35.0-46.0); HEMO FLAGS DIFF FINAL; LYMPH % 18.2 % (9.0-44.0); LYMPHOCYTE # 0.9 TH/MM3 (1.0-4.8); MEAN CELL VOLUME 93.7 FL (80.0-100.0); MEAN CORPUSCULAR HEMOGLOBIN 32.2 PG (27.0-34.0); MEAN CORPUSCULAR HGB CONC 34.3 % (32.0-36.0); MONO % 4.3 % (0.0-8.0); PLATELET COUNT 172 TH/MM3 (150-450); RED BLOOD COUNT 3.59 MIL/MM3 (4.00-5.30); RED CELL DISTRIBUTION WIDTH 14.3 % (11.6-17.2); WHITE BLOOD COUNT 5.1 TH/MM3 (4.0-11.0)
[2017-01-06] MEDS: CLINDAMYCIN INJ 600 MG in SODIUM CHLORIDE 0.9% INJ 50 ML IV SCH ×2 (06:03→14:03)
--- NOTE | 2017-01-06 07:07 | HHI.PR ---
Subjective Subjective Notes pt comfortable pain better pos flatus no N/V Objective Vitals/I&O Vital Signs Date Time Temp Pulse Resp B/P Pulse Ox O2 Delivery O2 Flow Rate FiO2 01/06/17 04:10 97.3 71 20 131/59 97 01/05/17 21:33 Nasal Cannula 2.00 Labs Laboratory Tests Test 01/05/17 01/06/17 07:12 04:55 White Blood Count 6.1 5.1 Red Blood Count 4.07 3.59 Hemoglobin 12.8 11.5 Hematocrit 38.0 33.7 Mean Corpuscular Volume 93.4 93.7 Mean Corpuscular Hemoglobin 31.6 32.2 Mean Corpuscular Hemoglobin 33.8 34.3 Concent Red Cell Distribution Width 14.7 14.3 Platelet Count 195 172 Mean Platelet Volume 10.0 9.8 Neutrophils (%) (Auto) 69.4 77.0 Lymphocytes (%) (Auto) 24.8 18.2 Monocytes (%) (Auto) 4.5 4.3 Eosinophils (%) (Auto) 0.7 0.2 Basophils (%) (Auto) 0.6 0.3 Neutrophils # (Auto) 4.3 4.0 Lymphocytes # (Auto) 1.5 0.9 Monocytes # (Auto) 0.3 0.2 Eosinophils # (Auto) 0.0 0.0 Basophils # (Auto) 0.0 0.0 CBC Comment DIFF FINAL DIFF FINAL Differential Comment Sodium Level 142 Potassium Level 3.7 Chloride Level 108 Carbon Dioxide Level 27.1 Anion Gap 7 Blood Urea Nitrogen 11 Creatinine 0.63 Estimat Glomerular Filtration 95 Rate Random Glucose 76 Calcium Level 9.0 Magnesium Level 1.9 Abdomen: Post-op tenderness Extremities: Perfused Wound Wound : Wound Location: Abdomen Appearance: Clean & Dry A/P Assessment and Plan S/P lap JORDAN POD #1 doing well avani liquids Advance diet to reg if avani can be d/c later in afternoon Abhishek Ashford MD Jan 06, 2017 07:07
[2017-01-06] MEDS: LISINOPRIL 10 MG TAB PO SCH (07:47)
[2017-01-06] MEDS: ESCITALOPRAM OXALATE 20 MG TAB PO SCH (07:48)
[2017-01-06] MEDS: SODIUM CHLORIDE 0.9% FLUSH 5 ML FLUSH IVF SCH ×2 (07:50→19:40)
[2017-01-06 08:00] VITALS: BP 129/63; PULSE 65; RESP 18; TEMP 95.5; O2SAT 99
[2017-01-06 08:20] VITALS: O2SAT 95
--- NOTE | 2017-01-06 10:37 | HHI.PR ---
Subjective Remarks Pt underwent laparascopic JORDAN on 01/05/[address] Johansen. She is passing flatus, no BM yet. Pt tolerated breakfast. She is having gas pain currently but is walking around the floor to try to work some of that out. Objective Vitals Vital Signs Date Time Temp Pulse Resp B/P Pulse Ox O2 Delivery O2 Flow Rate FiO2 01/06/17 09:08 97 Room Air 01/06/17 08:20 95 21 01/06/17 08:00 95.5 65 18 129/63 99 01/06/17 04:10 97.3 71 20 131/59 97 01/05/17 23:44 96.8 70 18 129/69 94 01/05/17 21:33 98 Nasal Cannula 2.00 01/05/17 20:35 97.4 69 17 131/63 95 01/05/17 20:00 99.0 71 12 135/73 96 Nasal Cannula 3 01/05/17 19:45 77 10 142/79 98 Nasal Cannula 3 01/05/17 19:30 95 12 135/75 98 Nasal Cannula 3 01/05/17 19:25 98.6 87 12 144/71 99 Nasal Cannula 3 01/05/17 15:12 18 01/05/17 15:12 18 01/05/17 11:35 98.5 60 18 138/70 96 01/05/17 01/05/17 01/06/17 15:00 23:00 07:00 Intake Total 1243 ml 1090 ml Output Total 300 ml 400 ml Balance 943 ml 690 ml Intake Oral 15 ml 240 ml IV Total 228 ml 850 ml Other 1000 ml Output Urine Total 100 ml 400 ml Other 200 ml Result Diagram: 01/06/17 0455 01/05/17 0712 Other Results Laboratory Tests Test 01/04/17 01/04/17 01/05/17 01/06/17 12:53 14:09 07:12 04:55 White Blood Count 6.3 TH/MM3 6.1 TH/MM3 5.1 TH/MM3 Red Blood Count 4.01 MIL/MM3 4.07 MIL/MM3 3.59 MIL/MM3 Hemoglobin 12.9 GM/DL 12.8 GM/DL 11.5 GM/DL Hematocrit 36.9 % 38.0 % 33.7 % Mean Corpuscular Volume 91.9 FL 93.4 FL 93.7 FL Mean Corpuscular Hemoglobin 32.0 PG 31.6 PG 32.2 PG Mean Corpuscular Hemoglobin 34.8 % 33.8 % 34.3 % Concent Red Cell Distribution Width 14.2 % 14.7 % 14.3 % Platelet Count 202 TH/MM3 195 TH/MM3 172 TH/MM3 Mean Platelet Volume 9.8 FL 10.0 FL 9.8 FL Neutrophils (%) (Auto) 80.8 % 69.4 % 77.0 % Lymphocytes (%) (Auto) 14.7 % 24.8 % 18.2 % Monocytes (%) (Auto) 3.9 % 4.5 % 4.3 % Eosinophils (%) (Auto) 0.3 % 0.7 % 0.2 % Basophils (%) (Auto) 0.3 % 0.6 % 0.3 % Neutrophils # (Auto) 5.1 TH/MM3 4.3 TH/MM3 4.0 TH/MM3 Lymphocytes # (Auto) 0.9 TH/MM3 1.5 TH/MM3 0.9 TH/MM3 Monocytes # (Auto) 0.2 TH/MM3 0.3 TH/MM3 0.2 TH/MM3 Eosinophils # (Auto) 0.0 TH/MM3 0.0 TH/MM3 0.0 TH/MM3 Basophils # (Auto) 0.0 TH/MM3 0.0 TH/MM3 0.0 TH/MM3 CBC Comment DIFF FINAL DIFF FINAL DIFF FINAL Differential Comment Sodium Level 142 MEQ/L 142 MEQ/L Potassium Level 3.3 MEQ/L 3.7 MEQ/L Chloride Level 108 MEQ/L 108 MEQ/L Carbon Dioxide Level 23.2 MEQ/L 27.1 MEQ/L Anion Gap 11 MEQ/L 7 MEQ/L Blood Urea Nitrogen 14 MG/DL 11 MG/DL Creatinine 0.73 MG/DL 0.63 MG/DL Estimat Glomerular Filtration 81 ML/MIN 95 ML/MIN Rate Random Glucose 117 MG/DL 76 MG/DL Calcium Level 9.0 MG/DL 9.0 MG/DL Total Bilirubin 0.7 MG/DL Aspartate Amino Transf 17 U/L (AST/SGOT) Alanine Aminotransferase 31 U/L (ALT/SGPT) Alkaline Phosphatase 109 U/L Total Creatine Kinase 39 U/L Troponin I LESS THAN 0.02 NG/ML Total Protein 6.5 GM/DL Albumin 3.9 GM/DL Lipase 119 U/L Urine Color YELLOW Urine Turbidity CLEAR Urine pH 6.5 Urine Specific [place] 1.026 Urine Protein NEG mg/dL Urine Glucose (UA) NEG mg/dL Urine Ketones 40 mg/dL Urine Occult Blood NEG Urine Nitrite NEG Urine Bilirubin NEG Urine Urobilinogen LESS THAN 2.0 MG/DL Urine Leukocyte Esterase SMALL Urine RBC 3 /hpf Urine WBC 2 /hpf Urine Squamous Epithelial <1 /hpf Cells Urine Bacteria RARE /hpf Urine Mucus FEW /lpf Microscopic Urinalysis Comment CULT NOT INDICATED Magnesium Level 1.9 MG/DL Imaging Last Impressions Abdomen X-Ray 01/05/17 0600 Signed Impressions: Service Date/Time: December 05:49 - CONCLUSION: No acute disease. Wesley Wilkinson MD Abdomen/Pelvis CT 01/04/17 1235 Signed Impressions: Service Date/Time: Wednesday, January 04, 2017 13:42 - CONCLUSION: Sludge in the gallbladder. Mild induration of fatty tissues adjacent to minimally distended small bowel loop in the right pelvis and minimal dependent free pelvic fluid. This could potentially be an inflammatory process of bowel or an early obstructive process. Clinical and imaging followup recommended as appropriate. Wesley Cruz MD Chest X-Ray 01/04/17 0000 Signed Impressions: Service Date/Time: Wednesday, January 04, 2017 13:28 - CONCLUSION: No acute disease. Jeferson Blackmon MD Objective Remarks General: NAD, AAOx3 Chest: CTA bilaterally Cardiac: regular Abd: +BS, soft nondistended, mild diffuse tenderness, steri strips in place Ext: No edema A/P Problem List: (1) Abdominal pain Status: Acute Plan: - Pt with hx of Nanda-en-Y gastric bypass in 04/2016 who presented to the ED on with abdominal pain and nausea/vomiting. - CT Abd/pelvis (01/04) --> Sludge in the gallbladder and mild induration of fatty tissues adjacent to minimally distended small bowel loop in the right pelvis and minimal dependent free pelvic fluid. This could potentially be an inflammatory process of bowel or an early obstructive process. - Pt underwent Laparoscopic JORDAN for a SBO on 01/05/[address] Johansen. - Diet progression per surgery - Zofran PRN - Pain control PRN - KUB (01/05) --> No acute disease - Stop IVF - Change meds to po - DVT prophylaxis with SCDs (2) HTN (hypertension) Status: Chronic Plan: - Cont. home meds - Clonidine PRN (3) Rheumatoid arthritis Status: Chronic Plan: - Hold Methotrexate Assessment and Plan Patient examined. Assessment and plan formulated with Karen Chao PA-C. I agree with the above. lysis of adhesions. pt with more abdomen pain and radiation to right shoulder now. trying to get comfortable. getting pain meds now. if no resolution nursing to notify her surgeon. presumed to be gas under diaphragm with shoulder referral....... Karen Chao Jan 06, 2017 10:37 Billy Clark MD Jan 06, 2017 11:13
[2017-01-06] MEDS: LEVOFLOXACIN 500 MG TAB PO SCH (11:07)
[2017-01-06] MEDS: ACETAMINOPHEN/HYDROcodone 325 MG/5 MG TAB PO PRN ×4 (11:07→23:40)
[2017-01-06 11:42] VITALS: BP 143/65; PULSE 75; RESP 20; TEMP 95.5; O2SAT 97
[2017-01-06] MEDS ORDERED: SIMETHICONE 125 MG CHEWABLE TAB PO ONE (12:00)
[2017-01-06] MEDS: SIMETHICONE 125 MG CHEWABLE TAB PO SCH ×2 (14:04→19:41)
[2017-01-06 15:39] VITALS: BP 160/73; PULSE 67; RESP 20; TEMP 97.8; O2SAT 96
[2017-01-06] MEDS ORDERED: ENOXAPARIN SODIUM 30 MG/0.3 ML SYRINGE SQ SCH (18:25)
[2017-01-06 20:00] VITALS: BP 118/69; PULSE 67; RESP 20; TEMP 98.8; O2SAT 96
[2017-01-07] VITALS: BP 120/76; PULSE 72; RESP 20; TEMP 97.6; O2SAT 95
[2017-01-07] MEDS: SIMETHICONE 125 MG CHEWABLE TAB PO SCH (04:50)
[2017-01-07 08:00] VITALS: BP 136/71; PULSE 67; RESP 16; TEMP 99.3; O2SAT 100
[2017-01-07] MEDS: ACETAMINOPHEN 325 MG TAB PO PRN (08:55)
[2017-01-07] MEDS: ESCITALOPRAM OXALATE 20 MG TAB PO SCH (08:55)
[2017-01-07] MEDS: LEVOFLOXACIN 500 MG TAB PO SCH (08:56)
[2017-01-07] MEDS: SODIUM CHLORIDE 0.9% FLUSH 5 ML FLUSH IVF SCH (08:56)
[2017-01-07] MEDS: LISINOPRIL 10 MG TAB PO SCH (08:56)
--- NOTE | 2017-01-07 10:28 | HHI.PR ---
Subjective Remarks moving bowels. pain better. wants to go home. Objective Vitals heart reg lung cta abd s/nt/bs ext no edema Vital Signs Date Time Temp Pulse Resp B/P Pulse Ox O2 Delivery O2 Flow Rate FiO2 01/07/17 08:00 99.3 67 16 136/71 100 01/07/17 04:52 Room Air 01/07/17 00:00 97.6 72 20 120/76 95 01/06/17 21:00 Room Air 01/06/17 20:00 98.8 67 20 118/69 96 01/06/17 15:39 97.8 67 20 160/73 96 01/06/17 11:42 95.5 75 20 143/65 97 01/06/17 01/06/17 01/07/17 15:00 23:00 07:00 Intake Total 383 ml 560 ml 460 ml Output Total 700 ml 700 ml Balance 383 ml -140 ml -240 ml Intake Oral 460 ml 460 ml IV Total 383 ml 100 ml 0 ml Output Urine Total 700 ml 700 ml # Voids 3 # Bowel Movements 0 0 Result Diagram: 01/06/17 0455 01/05/17 0712 Imaging Last Impressions Abdomen X-Ray 01/05/17 0600 Signed Impressions: Service Date/Time: December 05:49 - CONCLUSION: No acute disease. Wesley Wilkinson MD Abdomen/Pelvis CT 01/04/17 1235 Signed Impressions: Service Date/Time: Wednesday, January 04, 2017 13:42 - CONCLUSION: Sludge in the gallbladder. Mild induration of fatty tissues adjacent to minimally distended small bowel loop in the right pelvis and minimal dependent free pelvic fluid. This could potentially be an inflammatory process of bowel or an early obstructive process. Clinical and imaging followup recommended as appropriate. Wesley Cruz MD Chest X-Ray 01/04/17 0000 Signed Impressions: Service Date/Time: Wednesday, January 04, 2017 13:28 - CONCLUSION: No acute disease. Jeferson Blackmon MD A/P Problem List: (1) Abdominal pain Status: Acute Plan: - Pt with hx of Nanda-en-Y gastric bypass in 04/2016 who presented to the ED on with abdominal pain and nausea/vomiting. - CT Abd/pelvis (01/04) --> Sludge in the gallbladder and mild induration of fatty tissues adjacent to minimally distended small bowel loop in the right pelvis and minimal dependent free pelvic fluid. This could potentially be an inflammatory process of bowel or an early obstructive process. - Pt underwent Laparoscopic JORDAN for a SBO on 01/05/[address] Johansen. - diet progressed. moving bowels. pain better. she wants to go home. f/u gen surg. (2) HTN (hypertension) Status: Chronic Plan: - Cont. home meds - Clonidine PRN (3) Rheumatoid arthritis Status: Chronic Plan: - Hold Methotrexate Billy Clark MD Jan 07, 2017 10:28
--- NOTE | 2017-01-07 10:29 | HHI.DCPOC ---
Discharge Care Plan Diagnosis: (1) Small bowel obstruction (2) Rheumatoid arthritis (3) HTN (hypertension) Goals to Promote Your Health * To prevent worsening of your condition and complications * To maintain your health at the optimal level Directions to Meet Your Goals Take your medications as prescribed Follow your dietary instruction Follow activity as directed Keep your appointments as scheduled Take your immunizations and boosters as scheduled If your symptoms worsen call your PCP, if no PCP go to Urgent Care Center or Emergency Room Smoking is Dangerous to Your Health. Avoid second hand smoke Call the 24-hour hour crisis hotline for domestic abuse at Billy Clark MD Jan 07, 2017 10:29
--- NOTE | 2017-02-01 07:40 | MP ---
cc: DOMENICO ASHFORD DATE OF SURGERY: 01/05/2017 DATE OF : 1955 PREOPERATIVE DIAGNOSIS Small bowel obstruction. POSTOPERATIVE DIAGNOSIS Small bowel obstruction. PROCEDURE Laparoscopy with lysis of adhesions. SURGEON Domenico Ashford ANESTHESIA General endotracheal. ESTIMATED BLOOD LOSS Scant. FINDINGS Adhesive band in the lower pelvis causing bowel obstruction. SPECIMENS None. COMPLICATIONS None. OPERATION The patient was brought to the operating room and placed on the operating table in supine position. Bilateral sequential inflation devices were placed on the lower extremities. General anesthesia was instituted. Antibiotics were initiated. The abdomen was prepped and draped sterilely. A point in the left upper quadrant was anesthetized with 0.25% Marcaine with epinephrine. A skin incision was made. A 5 mm OptiView port was placed under direct vision and a pneumoperitoneum created. Under direct vision a 5 mm left lower quadrant and a 5 mm right upper quadrant port was placed. Prior to placement of all ports the skin and peritoneum were anesthetized with 0.25% Marcaine with epinephrine. The abdominal cavity was inspected. The patient's prior gastric bypass was inspected. Her stomach was not dilated. The Nanda limb and biliopancreatic limb appeared to be of normal caliber. No evidence of any internal hernias. No Torres hernias. No enteroenterostomy hernias. The patient did have dilated bowel distally and there were adhesions in the pelvis. These were taken down using sharp dissection. Once this was done the point of obstruction was released. At this point the operation was terminated. CO2 was released. All ports were removed. All skin incisions were closed with 4-0 Monocryl. The abdominal wall was cleaned and a sterile dressing placed. The patient was awakened and taken to the recovery room. MD DOROTHEA Snyder/GRABIEL /10:11 AM /7:30 AM
== END 2017-01-07 11:53 | disposition home or self-care (01) | DRG 336 ==
LOC: NEDAMB 12:11 → NEDA 15:51 → NEPHCDU 17:46 → N07B 01-05 18:14 → OBSVTOIN 01-05 19:17 → N07A 01-05 20:18
PROVIDERS: ADMIT Hospitalist; ATTEND Hospitalist
PROC: 0DNW4ZZ Release Peritoneum, Percutaneous Endoscopic Approach (ICD-10-PCS; principal; 2017-01-05 18:04)
DX: K56.5 Intestinal adhesions [bands] with obstruction (postinfection) (principal); F33.9 Major depressive disorder, recurrent, unspecified; K76.0 Fatty (change of) liver, not elsewhere classified; I12.9 Hypertensive chronic kidney disease with stage 1 through stage 4 chronic kidney disease, or unspecified chronic kidney disease; E78.5 Hyperlipidemia, unspecified; M06.9 Rheumatoid arthritis, unspecified; K21.9 Gastro-esophageal reflux disease without esophagitis; N18.2 Chronic kidney disease, stage 2 (mild); E55.9 Vitamin D deficiency, unspecified; Z98.84 Bariatric surgery status
CPT/HCPCS: 71010; 74000; 74177; 80048; 80053; 81001; 82550; 83690; 83735; 84484; 85025; 93005; 94150; 96361; 96374; 96375; G0378; J0131; J1100; J1130; J1170; J1650; J1956; J2250; J2405; J3010; J3480; J7030; Q9967

== ENCOUNTER 2017-05-01 18:21 | Emergency (ER) | payer SELFPAY ==
[~2017-05-01] VITALS: Ht 165.1 cm; Wt 70.0 kg
[~2017-05-01 18:21] MED LIST changes: +CHOL5000 PO; +ESCI20TA PO; +FOLI400T PO; +HYDR39SU2 RECTAL; -LEXA20TA PO; -LISI-363 PO; +LISI-515 PO; +METH5INJ; +PANT40TA3 PO; -PROT40TA PO
[2017-05-01 18:23] VITALS: BP 121/62; PULSE 69; RESP 18; TEMP 98.2; O2SAT 98
== END 2017-05-01 19:40 | disposition left against medical advice (07) ==
LOC: NED 18:21
DX: R10.9 Unspecified abdominal pain (principal)
CPT/HCPCS: 99281

== ENCOUNTER 2017-05-15 16:31 | Observation (INO) | payer OTHER ==
[~2017-05-15] VITALS: Ht 165.1 cm; Wt 70.0 kg
[2017-05-15 16:35] VITALS: BP 187/81; PULSE 87; RESP 21; TEMP 97.5; O2SAT 95
[2017-05-15] MEDS ORDERED: SODIUM CHLOR 0.9% 1000 ML INJ 1,000 ML IV SCH (16:48)
[2017-05-15 16:49] VITALS: BP 176/80; PULSE 62; RESP 22; O2SAT 98
[2017-05-15] MEDS ORDERED: HYDROmorphone HCL PF 1 MG/ML VIAL IV PUSH ONE ×2 (17:00→19:30)
[2017-05-15] MEDS ORDERED: ONDANSETRON HCL 4 MG/2 ML VIAL IVP ONE (17:00)
[2017-05-15] MEDS ORDERED: FAMOTIDINE 20 MG/2 ML VIAL IV PUSH ONE (17:00)
[2017-05-15] MEDS ORDERED: PANTOPRAZOLE SODIUM 40 MG VIAL IVP ONE (17:00)
[2017-05-15] MEDS ORDERED: MORPHINE SULFATE 4 MG/ML INJ IV PUSH ONE (17:00)
[2017-05-15] MEDS ORDERED: TUMERIC PO (17:20)
[2017-05-15] MEDS ORDERED: BIOTIN PO (17:20)
[2017-05-15] MEDS ORDERED: VITAMIN B12 SL (17:20)
[2017-05-15] MEDS ORDERED: MULTIVITAMIN PO (17:20)
[2017-05-15] MEDS ORDERED: ZINC30TA2 PO (17:20)
--- NOTE | 2017-05-15 17:35 | PD ---
HPI Chief Complaint: Abdominal Pain Time Seen by Provider: 17:33 Travel History International Travel<30 days: No Contact w/Intl Traveler<30days: No Traveled to known affect area: No History of Present Illness HPI 60-year-old female that presents to the ED for evaluation of abdominal pain. Per patient she's had this for about an hour before coming. Per patient she took her Lortab and her antiemetic with minimal relief. Per patient she is having 3 episodes of nausea but no actual vomiting. Per patient the pain is severe and out of 10. She does have significant history including gastric bypass as well as small bowel obstruction in the past. Patient follows with Dr. Guallpa for general surgery. She reports that nothing exacerbated the pain. Per patient she's been able to have bowel movements today. She had 3 today. She denies any shortness of breath. She does appear to be in some distress from the pain. She has allergies to Flagyl, morphine and sulfa. She denies any urinary symptoms. States that the pain radiates to the back. Has not seen anybody for this. No trauma. PFSH Past Medical History Asthma: No Blood Disorders: No Anxiety: No Depression: Yes Heart Rhythm Problems: No Cancer: Yes (BCC, SKIN ) Cardiovascular Problems: No High Cholesterol: No Chemotherapy: No Chest Pain: No Congestive Heart Failure: No COPD: No Cerebrovascular Accident: Yes (TIA X 2) Diabetes: No Endocrine: No Gastrointestinal Disorders: Yes (GERD, DIVERTICULITIS, HX GALLBADDER PAIN) GERD: Yes Genitourinary: No Hepatitis: No Hiatal Hernia: Yes Hypertension: Yes Immune Disorder: Yes (R/A) Medical other: Yes (GENITAL HERPES) Musculoskeletal: Yes (R/A, KNEES) Neurologic: Yes (TIA IN THE 90'S) Psychiatric: Yes (DEPRESSION, ANXIETY) Reproductive: Yes (HYSTERECTOMY) Respiratory: Yes (MILD SLEEP APNEA) Immunizations Current: Yes Radiation Therapy: No Sleep Apnea: No Thyroid Disease: No Influenza Vaccination: Yes Past Surgical History Abdominal Surgery: Yes (APPY / ABDOMINAL ADHESIONS) Appendectomy: Yes Gynecologic Surgery: Yes (HYSTERECTOMY) Hysterectomy: Yes Other Surgery: Yes (gastric bypass,hysterectomy,appendectomy) Social History Alcohol Use: Yes (RARE) Tobacco Use: No Substance Use: No Allergies-Medications (Allergen,Severity, Reaction): Coded Allergies: Flagyl (Unverified Allergy, Severe, HEADACHE, 7/3/17) Sulfa (Verified Allergy, Severe, RASH, 05/15/17) Morphine (Verified Allergy, Mild, Headache, 05/15/17) Reported Meds & Prescriptions Reported Meds & Active Scripts Active Reported [Tumeric] 1 Tab PO HS Zinc (Zinc Gluconate) 30 Mg Tab Unknown Dose PO HS [Vitamin B-12 Bariat.] 1 Tab SL HS [Biotin Bariatric] 1 Tab PO HS [Multivitamin Bariat.] 3 Tab PO HS Vitamin D3 (Cholecalciferol) 5,000 Unit Cap 10,000 Units PO DAILY Lisinopril 20 Mg Tab 20 Mg PO DAILY Escitalopram (Escitalopram Oxalate) 20 Mg Tab 20 Mg PO DAILY Folic Acid 400 Mcg Tab 400 Mcg PO DAILY Pantoprazole (Pantoprazole Sodium) 40 Mg Tab 40 Mg PO DAILY Methotrexate Inj 50 Mg/2 Ml Inj MONDAY Review of Systems Except as stated in HPI: all other systems reviewed are Neg Physical Exam Narrative GENERAL: SKIN: Warm and dry. HEAD: Atraumatic. Normocephalic. EYES: Pupils equal and round. No scleral icterus. No injection or drainage. ENT: No nasal bleeding or discharge. Mucous membranes pink and moist. Tongue is midline. No uvula deviation. NECK: Trachea midline. No JVD. CARDIOVASCULAR: Regular rate and rhythm. No murmurs, S3, S4. RESPIRATORY: No accessory muscle use. Clear to auscultation. Breath sounds equal bilaterally. GASTROINTESTINAL: Abdomen soft, very tender to palpation especially in the epigastric area with deep palpation, nondistended. Hepatic and splenic margins not palpable. MUSCULOSKELETAL: Extremities without clubbing, cyanosis, or edema. No obvious deformities. Full range of motion of the upper and lower extremities bilaterally. 2+ pulses bilaterally NEUROLOGICAL: Awake and alert. No obvious cranial nerve deficits. Motor grossly within normal limits. Five out of 5 muscle strength in the arms and legs. Normal speech. PSYCHIATRIC: Appropriate mood and affect; insight and judgment normal. Data Data Last Documented VS Vital Signs Date Time Temp Pulse Resp B/P Pulse Ox O2 Delivery O2 Flow Rate FiO2 05/15/17 16:49 62 22 176/80 98 Room Air 05/15/17 16:35 97.5 Orders Complete Blood Count With Diff (05/15/17 16:48) Comprehensive Metabolic Panel (05/15/17 16:48) Lipase (05/15/17 16:48) Lactic Acid (05/15/17 16:48) Prothrombin Time / Inr (Pt) (05/15/17 16:48) Act Partial Throm Time (Ptt) (05/15/17 16:48) Urinalysis - C+S If Indicated (05/15/17 16:48) Ct Abd/Pel W Iv Contrast(Rout) (05/15/17 16:48) Iv Access Insert/Monitor (05/15/17 16:48) Ecg Monitoring (05/15/17 16:48) Oximetry (05/15/17 16:48) Morphine Inj (Morphine Inj) (05/15/17 17:00) Ondansetron Inj (Zofran Inj) (05/15/17 17:00) Pantoprazole Inj (Protonix Inj) (05/15/17 17:00) Sodium Chlor 0.9% 1000 Ml Inj (Ns 1000 M (05/15/17 16:48) Electrocardiogram (05/15/17 16:48) Famotidine Inj (Pepcid Inj) (05/15/17 17:00) Hydromorphone Pf Inj (Dilaudid Pf Inj) (05/15/17 17:00) Iohexol 350 Inj (Omnipaque 350 Inj) (05/15/17 18:33) Lactic Acid (05/15/17 19:02) Ondansetron Inj (Zofran Inj) (05/15/17 19:30) Hydromorphone Pf Inj (Dilaudid Pf Inj) (05/15/17 19:30) Place In Observation (05/15/17 ) Code Status (05/15/17 19:51) Vital Signs (Adult) Q4H (05/15/17 19:51) Activity Oob With Assistance (05/15/17 19:51) Diet Clear Liquid (05/16/17 Breakfast) Sodium Chloride 0.9% Flush (Ns Flush) (05/15/17 20:00) Sodium Chloride 0.9% Flush (Ns Flush) (05/15/17 21:00) Acetaminophen (Tylenol) (05/15/17 20:00) Ondansetron Inj (Zofran Inj) (05/15/17 20:00) Temazepam (Restoril) (05/15/17 20:00) Basic Metabolic Panel (Bmp) (05/16/17 06:00) Complete Blood Count With Diff (05/16/17 06:00) Chest, Single Ap (05/15/17 19:51) Electrocardiogram (05/15/17 19:51) Pt Request For Service (05/15/17 19:51) Scd Bilateral/Knee High CRISTINA.BID (05/15/17 19:51) Naloxone Inj (Narcan Inj) (05/15/17 20:00) Magnesium Hydroxide Liq (Milk Of Magnesi (05/15/17 20:00) Bisacodyl Supp (Dulcolax Supp) (05/15/17 20:00) Acetamin-Hydrocod 325-5 Mg ([place] 5-325 (05/15/17 20:00) Hydromorphone Pf Inj (Dilaudid Pf Inj) (05/15/17 20:00) Escitalopram (Lexapro) (05/16/17 09:00) Lisinopril (Prinivil) (05/15/17 20:00) Pantoprazole (Protonix) (05/16/17 09:00) Enalaprilat Inj (Vasotec Inj) (05/15/17 20:00) Clonidine (Catapres) (05/15/17 20:00) Admit Order (Ed Use Only) (05/15/17 20:04) Labs Laboratory Tests Test 05/15/17 05/15/17 17:00 19:10 White Blood Count 6.1 TH/MM3 Red Blood Count 4.17 MIL/MM3 Hemoglobin 13.4 GM/DL Hematocrit 40.2 % Mean Corpuscular Volume 96.5 FL Mean Corpuscular Hemoglobin 32.2 PG Mean Corpuscular Hemoglobin 33.4 % Concent Red Cell Distribution Width 13.8 % Platelet Count 202 TH/MM3 Mean Platelet Volume 9.6 FL Neutrophils (%) (Auto) 71.9 % Lymphocytes (%) (Auto) 21.3 % Monocytes (%) (Auto) 5.6 % Eosinophils (%) (Auto) 0.8 % Basophils (%) (Auto) 0.4 % Neutrophils # (Auto) 4.4 TH/MM3 Lymphocytes # (Auto) 1.3 TH/MM3 Monocytes # (Auto) 0.3 TH/MM3 Eosinophils # (Auto) 0.0 TH/MM3 Basophils # (Auto) 0.0 TH/MM3 CBC Comment DIFF FINAL Differential Comment Prothrombin Time 10.9 SEC Prothromb Time International 1.0 RATIO Ratio Activated Partial 27.6 SEC Thromboplast Time Sodium Level 140 MEQ/L Potassium Level 4.0 MEQ/L Chloride Level 105 MEQ/L Carbon Dioxide Level 26.8 MEQ/L Anion Gap 8 MEQ/L Blood Urea Nitrogen 18 MG/DL Creatinine 0.84 MG/DL Estimat Glomerular Filtration 68 ML/MIN Rate Random Glucose 113 MG/DL Lactic Acid Level 2.5 mmol/L 0.9 mmol/L Calcium Level 9.6 MG/DL Total Bilirubin 0.5 MG/DL Aspartate Amino Transf 32 U/L (AST/SGOT) Alanine Aminotransferase 52 U/L (ALT/SGPT) Alkaline Phosphatase 126 U/L Total Protein 7.4 GM/DL Albumin 4.2 GM/DL Lipase 182 U/L Urine Color YELLOW Urine Turbidity CLEAR Urine pH 7.0 Urine Specific [place] 1.041 Urine Protein TRACE mg/dL Urine Glucose (UA) NEG mg/dL Urine Ketones 10 mg/dL Urine Occult Blood NEG Urine Nitrite NEG Urine Bilirubin NEG Urine Urobilinogen LESS THAN 2.0 MG/DL Urine Leukocyte Esterase LARGE Urine RBC 1 /hpf Urine WBC 7 /hpf Urine Squamous Epithelial 1 /hpf Cells Urine Bacteria RARE /hpf Urine Mucus FEW /lpf Microscopic Urinalysis Comment CULT NOT INDICATED MDM Medical Decision Making Medical Screen Exam Complete: Yes Emergency Medical Condition: Yes Medical Record Reviewed: Yes Interpretation(s) CBC & BMP Diagram 05/15/17 17:00 LFTS WNL with exception of alk phosphatase which is elevated Lipase WNL Last Impressions Abdomen/Pelvis CT 05/15/17 1648 Signed Impressions: Service Date/Time: Monday, May 15, 2017 18:30 - CONCLUSION: No dilated loops of small or large bowel. Clement Aggarwal MD Differential Diagnosis Epigastric pain versus bowel obstruction versus abdominal pain versus gastroenteritis versus gastritis versus liver disease versus cholelithiasis Narrative Course 61-year-old female that presents to the ED for evaluation of epigastric abdominal pain. Patient was properly examined and was found to have signs and symptoms consistent with appears to be abdominal pain. Labs and imaging ordered. Patient was started on IV pain medications and antiemetics. Fluids given as well. Labs and imaging were done and showed elevated lactic acid otherwise unremarkable. No sign of obstruction more importantly. Case was discussed in my attending who agrees with plan. Patient will be admitted for obstruction intractable pain and she continues to have pain even after medications and nausea. During this is reasonable as patient does have a significant history of previous surgery with obstruction in the past and multiple adhesions. Case discussed with Dr. Moran for [facility] for agrees to admission. Diagnosis Primary Impression: Intractable abdominal pain Admitting Information Admitting Physician Requests: Observation Pillo Mack May 15, 2017 17:35
[2017-05-15 17:39] LABS: APTT (PATIENT) 27.6 SEC (24.3-30.1); PROTHROMBIN TIME - PATIENT 10.9 SEC (9.8-11.6)
[2017-05-15 17:44] LABS: AUTOMATED NEUTROPHIL # 4.4 TH/MM3 (1.8-7.7); BASOPHIL % 0.4 % (0.0-2.0); EOSINOPHIL % 0.8 % (0.0-4.0); HEMATOCRIT 40.2 % (35.0-46.0); HEMO FLAGS DIFF FINAL; LYMPH % 21.3 % (9.0-44.0); LYMPHOCYTE # 1.3 TH/MM3 (1.0-4.8); MEAN CELL VOLUME 96.5 FL (80.0-100.0); MEAN CORPUSCULAR HEMOGLOBIN 32.2 PG (27.0-34.0); MEAN CORPUSCULAR HGB CONC 33.4 % (32.0-36.0); MONO % 5.6 % (0.0-8.0); NEUT % 71.9 % (16.0-70.0); PLATELET COUNT 202 TH/MM3 (150-450); RED BLOOD COUNT 4.17 MIL/MM3 (4.00-5.30); RED CELL DISTRIBUTION WIDTH 13.8 % (11.6-17.2); WHITE BLOOD COUNT 6.1 TH/MM3 (4.0-11.0)
[2017-05-15 17:47] LABS: ALT (GPT) 52 U/L (10-53); ANION GAP 8 MEQ/L (5-15); AST (GOT) 32 U/L (15-37); BICARBONATE 26.8 MEQ/L (21.0-32.0); BLOOD UREA NITROGEN 18 MG/DL (7-18); CHLORIDE 105 MEQ/L (98-107); GLOMERULAR FILTRATION RATE 68 ML/MIN (>89); SODIUM (NA) 140 MEQ/L (136-145)
[2017-05-15 17:49] LABS: ALKALINE PHOSPHATASE 126 U/L (45-117); TOTAL BILIRUBIN ADULT 0.5 MG/DL (0.2-1.0)
[2017-05-15] MEDS ORDERED: IOHEXOL 350 MG/ML 10 ML VIAL (for RAD DIAG) IV ONE (18:33)
[2017-05-15] MEDS ORDERED: ONDANSETRON HCL 4 MG/2 ML VIAL IV PUSH ONE (19:30)
[2017-05-15 19:36] LABS: BACTERIA, URINE RARE /hpf; BLOOD, URINE NEG (NEG); COMMENT (UR) CULT NOT INDICATED; CULTURE IF INDICATED CULT NOT INDICATED; GLUCOSE,URINE NEG (NEG); KETONE, URINE 10 mg/dL (NEG); MUCUS URINE FEW /lpf (OCC); NITRITE,URINE NEG (NEG); SQUAMOUS EPITHELIAL CELL URINE 1 /hpf (0-5); URINE COLOR YELLOW (YELLW/STRAW)
--- NOTE | 2017-05-15 19:53 | RADRPT ---
EXAM DATE/TIME: 05/15/2017 18:30 [facility] COMPARISON: CT ABDOMEN & PELVIS W CONTRAST, January 04, 2017, 13:42. INDICATIONS : Abdomen pain with nausea and vomiting. IV CONTRAST: 80 cc Omnipaque 350 (iohexol) IV ORAL CONTRAST: No oral contrast ingested. RADIATION DOSE: 7.28 CTDIvol (mGy) MEDICAL HISTORY : Cardiovascular disease. Hypertension. Diverticulitis.Hiatal hernia SURGICAL HISTORY : Appendectomy. Gastric bypass. Hysterectomy. ENCOUNTER: Initial ACUITY: 1 day PAIN SCALE: 8/10 LOCATION: abdomen TECHNIQUE: Volumetric scanning of the abdomen and pelvis was performed. Using automated exposure control and ad justment of the mA and/or kV according to patient size, radiation dose was kept as low as reasonably achievable to obtain optimal diagnostic quality images. DICOM format image data is available electro nically for review and comparison. FINDINGS: LOWER LUNGS: The visualized lower lungs are clear. LIVER: Homogeneous density without lesion. There is no dilation of the biliary tree. No calcified gallston es. SPLEEN: Normal size without lesion. PANCREAS: Within normal limits. KIDNEYS: Normal in size and shape. There is no mass, stone or hydronephrosis. ADRENAL GLANDS: Within normal limits. VASCULAR: There is no aortic aneurysm. BOWEL/MESENTERY: Anastomosis suture about the stomach and in the left lower quadrant. No dilated loops of small or la rge bowel. No induration of the mesentery. No evidence of free fluid. ABDOMINAL WALL: Within normal limits. RETROPERITONEUM: There is no lymphadenopathy. BLADDER: No wall thickening or mass. REPRODUCTIVE: Within normal limits. INGUINAL: There is no lymphadenopathy or hernia. MUSCULOSKELETAL: Moderate degenerative changes in the posterior most lower lumbar spine. CONCLUSION: No dilated loops of small or large bowel. Clement Aggarwal MD on May 15, 2017 at 19:46 Board Certified Radiologist. This report was verified electronically.
[2017-05-15 20:00] VITALS: BP 149/67; PULSE 58; RESP 14; O2SAT 96
[2017-05-15] MEDS ORDERED: ACETAMINOPHEN/HYDROcodone 325 MG/5 MG TAB PO PRN (20:00)
[2017-05-15] MEDS ORDERED: cloNIDine HCL 0.2 MG TAB PO PRN (20:00)
[2017-05-15] MEDS ORDERED: ENALAPRILAT 1.25 MG/ML VIAL IV PRN (20:00)
[2017-05-15] MEDS ORDERED: SODIUM CHLORIDE 0.9% FLUSH 10 ML FLUSH IV FLUSH PRN (20:00)
[2017-05-15] MEDS ORDERED: HYDROmorphone HCL PF 1 MG/ML VIAL IV PUSH PRN (20:00)
[2017-05-15] MEDS ORDERED: BISACODYL 10 MG SUPP RECTAL PRN (20:00)
[2017-05-15] MEDS ORDERED: MAGNESIUM HYDROXIDE SUSP 30 ML CUP PO PRN (20:00)
[2017-05-15] MEDS ORDERED: NALOXONE HCL 0.4 MG/ML AMP IV PRN (20:00)
[2017-05-15] MEDS: SODIUM CHLORIDE 0.9% FLUSH 10 ML FLUSH IV FLUSH SCH (21:00)
[2017-05-15] MEDS ORDERED: TEMAZEPAM 15 MG CAP PO PRN (21:00)
--- NOTE | 2017-05-15 21:00 | RADRPT ---
EXAM DATE/TIME: 05/15/2017 20:14 [facility] COMPARISON: CHEST SINGLE AP, January 04, 2017, 13:28. INDICATIONS : Short of breath. MEDICAL HISTORY : None. SURGICAL HISTORY : None. ENCOUNTER: Initial ACUITY: 1 day PAIN SCORE: 0/10 LOCATION: Bilateral chest FINDINGS: A single view of the chest demonstrates the lungs to be symmetrically aerated without evidence of mas s, infiltrate or effusion. The cardiomediastinal contours are unremarkable. Osseous structures are intact. CONCLUSION: The lungs are clear. Clement Aggarwal MD on May 15, 2017 at 20:57 Board Certified Radiologist. This report was verified electronically.
[2017-05-15] MEDS: LISINOPRIL 20 MG TAB PO SCH (21:35)
[2017-05-15 23:26] VITALS: BP 143/63; PULSE 45; RESP 16; TEMP 97.7; O2SAT 99
[2017-05-15] MEDS: ONDANSETRON HCL 4 MG/2 ML VIAL IVP PRN (23:47)
[2017-05-16 03:30] VITALS: BP 125/58; PULSE 50; RESP 17; TEMP 97.9; O2SAT 99
[2017-05-16 06:03] LABS: AUTOMATED NEUTROPHIL # 2.4 TH/MM3 (1.8-7.7); BASOPHIL % 0.6 % (0.0-2.0); HEMATOCRIT 34.4 % (35.0-46.0); HEMO FLAGS DIFF FINAL; LYMPH % 35.2 % (9.0-44.0); LYMPHOCYTE # 1.5 TH/MM3 (1.0-4.8); MEAN CORPUSCULAR HEMOGLOBIN 32.7 PG (27.0-34.0); NEUT % 57.2 % (16.0-70.0); PLATELET COUNT 179 TH/MM3 (150-450); RED BLOOD COUNT 3.58 MIL/MM3 (4.00-5.30); RED CELL DISTRIBUTION WIDTH 14.2 % (11.6-17.2); WHITE BLOOD COUNT 4.3 TH/MM3 (4.0-11.0)
[2017-05-16 06:24] LABS: BICARBONATE 32.2 MEQ/L (21.0-32.0)
[2017-05-16 08:24] VITALS: BP 109/54; PULSE 50; RESP 18; TEMP 98.6; O2SAT 96
[2017-05-16] MEDS: ESCITALOPRAM OXALATE 20 MG TAB PO SCH (08:48)
[2017-05-16] MEDS: SODIUM CHLORIDE 0.9% FLUSH 10 ML FLUSH IV FLUSH SCH ×2 (08:48→20:01)
[2017-05-16] MEDS: PANTOPRAZOLE SOD 40 MG DELAYED RELEASE TAB PO SCH (08:48)
[2017-05-16] MEDS: ACETAMINOPHEN 325 MG TAB PO PRN (08:49)
[2017-05-16] MEDS: LISINOPRIL 20 MG TAB PO SCH (09:00)
--- NOTE | 2017-05-16 10:02 | HHI.HP ---
HPI Service [facility] Hospitalists Primary Care Physician Baltazar Smith MD Admission Diagnosis intractable abdominal pain and nausea Chief Complaint: Abd pain, nausea Travel History International Travel<30 Days: No Contact w/Intl Traveler <30 Da: No Traveled to Known Affected Are: No History of Present Illness Ms. Mckeon is a pleasant 61 y/o WF with HTN, rheumatoid arthritis, hx of CVA in 1993 and 1994 without residual effects, and previous laparoscopic Nanda-en-Y gastric bypass in 04/2016. Pt was recently admitted to [facility] in 12/2016 with a SBO. Pt underwent Laparoscopic JORDAN for a SBO on 01/05/[address] Johansen. She states that she had been doing well after that admission up until yesterday. Patient developed abdominal pain and nausea about an hour before reporting to the ED. Per patient she took her Lortab and her antiemetic with minimal relief. She did move her bowels yesterday. She had 3 loose BMs, nonbloody. She denies any fevers, chills, reflux, dysphagia, vomiting, chest pain, shortness of breath, palpitations. Denies any trauma. Her labs in the ED were essentially unremarkable. LFTs and Lipase were stable. CT Abd/pelvis (05/15/17) with no dilated loops of small or large bowel. Pt was treated in the ED with IV pain medications, Dilaudid and Morphine, antiemetics, and PPI/H2 carli. Today , pt as been afebrile. Her nausea and abdominal pain have improved. Review of Systems Constitutional: DENIES: Fever, Chills Respiratory: DENIES: Shortness of breath Cardiovascular: DENIES: Chest pain Gastrointestinal: COMPLAINS OF: Abdominal pain, Nausea, DENIES: Black stools, Bloody stools, Reflux, Vomiting Genitourinary: DENIES: Urinary frequency, Hematuria, Dysuria Musculoskeletal: DENIES: Neck pain Integumentary: DENIES: Rash Neurologic: DENIES: Headache Psychiatric: DENIES: Confusion Past Family Social History Past Medical History Hypertension Hyperlipidemia GERD Impaired fasting glucose Chronic recurrent major depression CKD, stage 2 Fatty liver Vitamin D deficiency Morbid obesity s/p laparoscopic Nanda-en-Y gastric bypass on 04-13-16 Rheumatoid arthritis Hx of CVA in 1993 and 1994 with no residual effects per the pt Past Surgical History Laparoscopic JORDAN for a SBO on 01/05/[address] Johansen. Laparoscopic Nanda-en-Y gastric bypass on 04/13/[address] Johansen. Appendectomy NEHEMIAS with BSO Skin cancer removal Reported Medications [Tumeric] 1 Tab PO HS Zinc (Zinc Gluconate) 30 Mg Tab Unknown Dose PO HS [Vitamin B-12 Bariat.] 1 Tab SL HS [Biotin Bariatric] 1 Tab PO HS [Multivitamin Bariat.] 3 Tab PO HS Vitamin D3 (Cholecalciferol) 5,000 Unit Cap 10,000 Units PO DAILY Lisinopril 20 Mg Tab 20 Mg PO DAILY Escitalopram (Escitalopram Oxalate) 20 Mg Tab 20 Mg PO DAILY Folic Acid 400 Mcg Tab 400 Mcg PO DAILY Pantoprazole (Pantoprazole Sodium) 40 Mg Tab 40 Mg PO DAILY Methotrexate Inj 50 Mg/2 Ml Inj MONDAY Allergies: Coded Allergies: Flagyl (Unverified Allergy, Severe, HEADACHE, 05/15/17) Sulfa (Verified Allergy, Severe, RASH, 05/15/17) Morphine (Verified Allergy, Mild, Headache, 05/15/17) Family History Mother with hx of COPD, CHF, dementia Father from esophageal cancer at age 69 Social History Denies any tobacco or illicit drug use Occasional social alcohol use Physical Exam Vital Signs Vital Signs Date Time Temp Pulse Resp B/P Pulse Ox O2 Delivery O2 Flow Rate FiO2 05/16/17 08:24 98.6 50 18 109/54 96 05/16/17 03:30 97.9 50 17 125/58 99 05/15/17 23:26 97.7 45 16 143/63 99 05/15/17 20:10 17 05/15/17 20:00 58 14 149/67 96 Room Air 05/15/17 16:49 62 22 176/80 98 Room Air 05/15/17 16:35 97.5 87 21 187/81 95 Physical Exam GENERAL: This is a well-nourished, well-developed patient, in no apparent distress. HEENT: Atraumatic. Normocephalic. No temporal or scalp tenderness. No scleral icterus. Airway patent. NECK: Trachea midline, supple, nontender. CARDIO: Regular. RESP: CTA bilaterally. No wheezes, rales, or rhonchi. AVD: +BS, soft, non-tender, nondistended. EXT: Extremities without clubbing, cyanosis, or edema. NEURO: Awake and alert. Motor and sensory grossly within normal limits. Normal speech. Laboratory Laboratory Tests Test 05/15/17 05/15/17 05/16/17 17:00 19:10 05:09 White Blood Count 6.1 4.3 Red Blood Count 4.17 3.58 Hemoglobin 13.4 11.7 Hematocrit 40.2 34.4 Mean Corpuscular Volume 96.5 96.0 Mean Corpuscular Hemoglobin 32.2 32.7 Mean Corpuscular Hemoglobin 33.4 34.0 Concent Red Cell Distribution Width 13.8 14.2 Platelet Count 202 179 Mean Platelet Volume 9.6 9.4 Neutrophils (%) (Auto) 71.9 57.2 Lymphocytes (%) (Auto) 21.3 35.2 Monocytes (%) (Auto) 5.6 6.0 Eosinophils (%) (Auto) 0.8 1.0 Basophils (%) (Auto) 0.4 0.6 Neutrophils # (Auto) 4.4 2.4 Lymphocytes # (Auto) 1.3 1.5 Monocytes # (Auto) 0.3 0.3 Eosinophils # (Auto) 0.0 0.0 Basophils # (Auto) 0.0 0.0 CBC Comment DIFF FINAL DIFF FINAL Differential Comment Prothrombin Time 10.9 Prothromb Time International 1.0 Ratio Activated Partial 27.6 Thromboplast Time Sodium Level 140 144 Potassium Level 4.0 4.0 Chloride Level 105 108 Carbon Dioxide Level 26.8 32.2 Anion Gap 8 4 Blood Urea Nitrogen 18 14 Creatinine 0.84 0.66 Estimat Glomerular Filtration 68 90 Rate Random Glucose 113 75 Lactic Acid Level 2.5 0.9 Calcium Level 9.6 9.1 Total Bilirubin 0.5 Aspartate Amino Transf 32 (AST/SGOT) Alanine Aminotransferase 52 (ALT/SGPT) Alkaline Phosphatase 126 Total Protein 7.4 Albumin 4.2 Lipase 182 Urine Color YELLOW Urine Turbidity CLEAR Urine pH 7.0 Urine Specific [place] 1.041 Urine Protein TRACE Urine Glucose (UA) NEG Urine Ketones 10 Urine Occult Blood NEG Urine Nitrite NEG Urine Bilirubin NEG Urine Urobilinogen LESS THAN 2.0 Urine Leukocyte Esterase LARGE Urine RBC 1 Urine WBC 7 Urine Squamous Epithelial 1 Cells Urine Bacteria RARE Urine Mucus FEW Microscopic Urinalysis Comment CULT NOT INDICATED Result Diagram: 05/16/17 0509 05/16/17 0509 Imaging Last Impressions Chest X-Ray 05/15/171950 Signed Impressions: Service Date/Time: Monday, May 15, 2017 20:14 - CONCLUSION: The lungs are clear. Clement Aggarwal MD Abdomen/Pelvis CT 05/15/17 1648 Signed Impressions: Service Date/Time: Monday, May 15, 2017 18:30 - CONCLUSION: No dilated loops of small or large bowel. Clement Aggarwal MD Septic Shock Reassessment Heart: Regular rate and rhythm Lungs: Clear Skin: Warm Peripheral Pulses: Bounding Right Radial Bounding Left Radial Bounding Right Popliteal Bounding Left Popliteal Bounding Right Dorsalis Pedis Bounding Left Dorsalis Pedis Bounding Right Posterior Tibial Bounding Left Posterior Tibial Assessment and Plan Problem List: (1) Abdominal pain Status: Acute Plan: - Pt is a 61 y/o female with HTN, rheumatoid arthritis, previous laparoscopic Nanda-en-Y gastric bypass in 04/2016. - Pt was recently admitted to [facility] in 12/2016 with a SBO and underwent Laparoscopic JORDAN for a SBO on 01/05/[address] Johansen. - Patient presented with acute onset of abdominal pain and nausea about an hour before reporting to the ED. - She did move her bowels yesterday, 3 loose BMs, nonbloody. - Her labs in the ED were essentially unremarkable. LFTs and Lipase were stable. - CT Abd/pelvis (05/15/17) with no dilated loops of small or large bowel. - Pt was treated in the ED with IV pain medications, Dilaudid and Morphine, antiemetics, and PPI/H2 carli. - Pt is tolerating clear liquid diet - Slowly advance diet as tolerated - Monitor clinical status - Supportive care (2) HTN (hypertension) Status: Chronic Plan: - Home meds resumed - Monitor (3) Rheumatoid arthritis Status: Chronic Assessment and Plan Patient examined. Assessment and plan formulated with Karen Chao PA-C. I agree with the above. Karen Chao May 16, 2017 10:02 Taiwo Moran DO May 21, 2017 10:47
[2017-05-16] MEDS ORDERED: TURM500C3 PO (12:22)
[2017-05-16 13:00] VITALS: BP 115/65; PULSE 54; RESP 16; TEMP 98.9; O2SAT 99
--- NOTE | 2017-05-16 13:22 | EKG ---
Date Performed: 05/15/2017 Time Performed: 17:09:54 PTAGE: 61 years EKG: SINUS BRADYCARDIA WITH SINUS ARRHYTHMIA MODERATE INTRAVENTRICULAR CONDUCTION DELAY ABNORMAL ECG PREVIOUS TRACING : 01/04/2017 12.59 Compared to prior tracing no significant change DOCTOR: Luis Ruiz Interpretating Date/Time 05/16/2017 13:17:20
[2017-05-16 15:53] VITALS: BP 120/73; PULSE 63; RESP 18; TEMP 96.8; O2SAT 96
[2017-05-16] MEDS: ONDANSETRON HCL 4 MG/2 ML VIAL IVP PRN (20:01)
[2017-05-16 20:07] VITALS: BP_SYST 126; BP_SYST 179; BP_DIAS 63; BP_DIAS 83; PULSE 88; RESP 16; TEMP 98.5; O2SAT 92
[2017-05-17] VITALS: BP 139/67; PULSE 78; RESP 18; TEMP 98; O2SAT 98
[2017-05-17 04:38] VITALS: BP 114/58; PULSE 58; RESP 20; TEMP 98.6; O2SAT 93
[2017-05-17 04:50] VITALS: RESP 16; O2SAT 97
[2017-05-17] MEDS ORDERED: ACETAMINOPHEN 325 MG TAB PO PRN (05:30)
[2017-05-17] MEDS: ACETAMINOPHEN 325 MG TAB PO PRN (05:39)
[2017-05-17 08:30] VITALS: BP 121/64; PULSE 55; RESP 12; TEMP 97.8; O2SAT 95
[2017-05-17] MEDS: PANTOPRAZOLE SOD 40 MG DELAYED RELEASE TAB PO SCH (09:00)
[2017-05-17] MEDS: LISINOPRIL 20 MG TAB PO SCH (09:25)
[2017-05-17] MEDS: SODIUM CHLORIDE 0.9% FLUSH 10 ML FLUSH IV FLUSH SCH (09:26)
[2017-05-17] MEDS: ESCITALOPRAM OXALATE 20 MG TAB PO SCH (09:26)
--- NOTE | 2017-05-17 12:06 | HHI.PR ---
Subjective Remarks Pt reports that she tolerated her diet She had a BM today Some abdominal soreness but no pain. Objective Vitals Vital Signs Date Time Temp Pulse Resp B/P Pulse Ox O2 Delivery O2 Flow Rate FiO2 05/17/17 08:30 97.8 55 12 121/64 95 05/17/17 04:50 16 97 05/17/17 04:38 98.6 58 20 114/58 93 05/17/17 00:00 98.0 78 18 139/67 98 05/16/17 20:07 98.5 88 16 126/63 92 05/16/17 15:53 96.8 63 18 120/73 96 05/16/17 13:00 98.9 54 16 115/65 99 Result Diagram: 05/16/17 0509 05/16/17 0509 Other Results Laboratory Tests Test 05/15/17 05/15/17 05/16/17 17:00 19:10 05:09 White Blood Count 6.1 TH/MM3 4.3 TH/MM3 Red Blood Count 4.17 MIL/MM3 3.58 MIL/MM3 Hemoglobin 13.4 GM/DL 11.7 GM/DL Hematocrit 40.2 % 34.4 % Mean Corpuscular Volume 96.5 FL 96.0 FL Mean Corpuscular Hemoglobin 32.2 PG 32.7 PG Mean Corpuscular Hemoglobin 33.4 % 34.0 % Concent Red Cell Distribution Width 13.8 % 14.2 % Platelet Count 202 TH/MM3 179 TH/MM3 Mean Platelet Volume 9.6 FL 9.4 FL Neutrophils (%) (Auto) 71.9 % 57.2 % Lymphocytes (%) (Auto) 21.3 % 35.2 % Monocytes (%) (Auto) 5.6 % 6.0 % Eosinophils (%) (Auto) 0.8 % 1.0 % Basophils (%) (Auto) 0.4 % 0.6 % Neutrophils # (Auto) 4.4 TH/MM3 2.4 TH/MM3 Lymphocytes # (Auto) 1.3 TH/MM3 1.5 TH/MM3 Monocytes # (Auto) 0.3 TH/MM3 0.3 TH/MM3 Eosinophils # (Auto) 0.0 TH/MM3 0.0 TH/MM3 Basophils # (Auto) 0.0 TH/MM3 0.0 TH/MM3 CBC Comment DIFF FINAL DIFF FINAL Differential Comment Prothrombin Time 10.9 SEC Prothromb Time International 1.0 RATIO Ratio Activated Partial 27.6 SEC Thromboplast Time Sodium Level 140 MEQ/L 144 MEQ/L Potassium Level 4.0 MEQ/L 4.0 MEQ/L Chloride Level 105 MEQ/L 108 MEQ/L Carbon Dioxide Level 26.8 MEQ/L 32.2 MEQ/L Anion Gap 8 MEQ/L 4 MEQ/L Blood Urea Nitrogen 18 MG/DL 14 MG/DL Creatinine 0.84 MG/DL 0.66 MG/DL Estimat Glomerular Filtration 68 ML/MIN 90 ML/MIN Rate Random Glucose 113 MG/DL 75 MG/DL Lactic Acid Level 2.5 mmol/L 0.9 mmol/L Calcium Level 9.6 MG/DL 9.1 MG/DL Total Bilirubin 0.5 MG/DL Aspartate Amino Transf 32 U/L (AST/SGOT) Alanine Aminotransferase 52 U/L (ALT/SGPT) Alkaline Phosphatase 126 U/L Total Protein 7.4 GM/DL Albumin 4.2 GM/DL Lipase 182 U/L Urine Color YELLOW Urine Turbidity CLEAR Urine pH 7.0 Urine Specific [place] 1.041 Urine Protein TRACE mg/dL Urine Glucose (UA) NEG mg/dL Urine Ketones 10 mg/dL Urine Occult Blood NEG Urine Nitrite NEG Urine Bilirubin NEG Urine Urobilinogen LESS THAN 2.0 MG/DL Urine Leukocyte Esterase LARGE Urine RBC 1 /hpf Urine WBC 7 /hpf Urine Squamous Epithelial 1 /hpf Cells Urine Bacteria RARE /hpf Urine Mucus FEW /lpf Microscopic Urinalysis Comment CULT NOT INDICATED Imaging Last Impressions Chest X-Ray 05/15/171950 Signed Impressions: Service Date/Time: Monday, May 15, 2017 20:14 - CONCLUSION: The lungs are clear. Clement Aggarwal MD Abdomen/Pelvis CT 05/15/17 1648 Signed Impressions: Service Date/Time: Monday, May 15, 2017 18:30 - CONCLUSION: No dilated loops of small or large bowel. Clement Aggarwal MD Objective Remarks General: NAD, AAOx3 Chest: CTA Cardiac: Regular Abd: +BS, soft ND/NT Ext: No edema A/P Problem List: (1) Abdominal pain Status: Acute Plan: - Pt is a 61 y/o female with HTN, rheumatoid arthritis, previous laparoscopic Nanda-en-Y gastric bypass in 04/2016. - Pt was recently [place] [facility]BO and underwent Laparoscopic JORDAN for a SBO on 01/05/[address] Johansen. - Patient presented with acute onset of abdominal pain and nausea about an hour before reporting to the ED. - She did move her bowels yesterday, 3 loose BMs, nonbloody. - Her labs in the ED were essentially unremarkable. LFTs and Lipase were stable. - CT Abd/pelvis (05/15/17) with no dilated loops of small or large bowel. - Pt was treated in the ED with IV pain medications, Dilaudid and Morphine, antiemetics, and PPI/H2 carli. - Pt tolerated advanced diet - She had a BM today - Symptoms may be secondary to adhesions ?partial SBO that resolves with conservative measures. - Will discuss the case with Dr. Johansen, per the pts request. - She will need to followup with him within the next week for followup. - Pt is stable for discharge to home. (2) HTN (hypertension) Status: Chronic Plan: - Home meds resumed - Monitor (3) Rheumatoid arthritis Status: Chronic Assessment and Plan Patient examined. Assessment and plan formulated with Karen Chao PA-C. I agree with the above. Karen Chao May 17, 2017 12:06 Taiwo Moran DO May 21, 2017 10:46
--- NOTE | 2017-05-17 12:08 | HHI.DCPOC ---
Discharge Care Plan Diagnosis: (1) Abdominal pain (2) History of gastric bypass (3) HTN (hypertension) (4) Rheumatoid arthritis Goals to Promote Your Health * To prevent worsening of your condition and complications * To maintain your health at the optimal level Directions to Meet Your Goals Take your medications as prescribed Follow your dietary instruction Follow activity as directed Keep your appointments as scheduled Take your immunizations and boosters as scheduled If your symptoms worsen call your PCP, if no PCP go to Urgent Care Center or Emergency Room Smoking is Dangerous to Your Health. Avoid second hand smoke Call the 24-hour hour crisis hotline for domestic abuse at Karen Chao May 17, 2017 12:08 Taiwo Moran DO May 21, 2017 10:47
[2017-05-17 12:15] VITALS: BP 146/84; PULSE 58; RESP 20; TEMP 98.6; O2SAT 98
[2017-05-17] MEDS: ONDANSETRON HCL 4 MG/2 ML VIAL IVP PRN (12:22)
[2017-05-17] MEDS ORDERED: ZOFR4TAB3 SL (13:41)
== END 2017-05-17 13:36 | disposition home or self-care (01) ==
LOC: NEPC 16:31 → NEDA 20:06 → NEPFCDU 22:58
PROVIDERS: ADMIT Hospitalist; ATTEND Hospitalist
DX: R10.9 Unspecified abdominal pain (principal); R94.31 Abnormal electrocardiogram [ECG] [EKG]; I49.8 Other specified cardiac arrhythmias; R00.1 Bradycardia, unspecified; R06.02 Shortness of breath; R11.2 Nausea with vomiting, unspecified; M06.9 Rheumatoid arthritis, unspecified; I12.9 Hypertensive chronic kidney disease with stage 1 through stage 4 chronic kidney disease, or unspecified chronic kidney disease; N18.2 Chronic kidney disease, stage 2 (mild); E78.5 Hyperlipidemia, unspecified; K21.9 Gastro-esophageal reflux disease without esophagitis; K76.0 Fatty (change of) liver, not elsewhere classified; G47.30 Sleep apnea, unspecified; F32.9 Major depressive disorder, single episode, unspecified; F41.9 Anxiety disorder, unspecified; Z86.73 Personal history of transient ischemic attack (TIA), and cerebral infarction without residual deficits; Z79.899 Other long term (current) drug therapy; Z85.828 Personal history of other malignant neoplasm of skin; Z98.84 Bariatric surgery status
CPT/HCPCS: 71010; 74177; 80048; 80053; 81001; 83605; 83690; 85025; 85610; 85730; 93005; 96361; 96374; 96375; 96376; 97161; 99285; C9113; G0378; G8987; G8988; G8989; J1170; J2405; J7030; Q9967

== ENCOUNTER 2018-03-07 15:47 | Inpatient (IN) | payer OTHER ==
[~2018-03-07] VITALS: Ht 167.6 cm; Wt 69.3 kg
[~2018-03-07 15:47] MED LIST changes: +BIOTIN PO; -HYDR39SU2 RECTAL; +MULTIVITAMIN PO; +TURM500C3 PO; +VITAMIN B12 SL; +ZINC30TA2 PO; +ZOFR4TAB3 SL
[2018-03-07 16:08] VITALS: BP 144/84; PULSE 53; RESP 16; TEMP 98.6; O2SAT 100
[2018-03-07] MEDS ORDERED: SODIUM CHLOR 0.9% 1000 ML INJ 1,000 ML IV SCH (16:27)
[2018-03-07] MEDS ORDERED: ONDANSETRON HCL 4 MG/2 ML VIAL IV PUSH ONE (16:30)
[2018-03-07] MEDS ORDERED: SODIUM CHLORIDE 0.9% FLUSH 10 ML FLUSH IV FLUSH PRN ×2 (16:30→21:15)
--- NOTE | 2018-03-07 16:34 | PD ---
HPI Chief Complaint: Flank/Kidney Pain Time Seen by Provider: 16:27 Travel History International Travel<30 days: No Contact w/Intl Traveler<30days: No Traveled to known affect area: No History of Present Illness HPI Patient is a 62-year-old female with a history of small bowel obstructions and adhesions and a history of gastric bypass surgery followed by Dr. Guallpa seen presents emergency department for evaluation of some nausea and vomiting as well as some abdominal discomfort which started about an hour ago. Patient states that a friend called Dr. Guallpa's office and they referred her up here. Patient states that Dr. Guallpa performed a lysis of adhesions on her some months ago. She states the pain is predominantly on the right side radiates to her right flank, generalized weakness now she is just having dry heaves but before she was having production of food but no bile and no blood in the emesis. No diarrhea no constipation. No fevers. States symptoms are moderate, gradually worsening, associated signs and symptoms in context as above. PFSH Past Medical History Asthma: No Blood Disorders: No Anxiety: No Depression: Yes Heart Rhythm Problems: No Cancer: Yes (BCC, SKIN ) Cardiovascular Problems: No High Cholesterol: No Chemotherapy: No Chest Pain: No Congestive Heart Failure: No COPD: No Cerebrovascular Accident: Yes (TIA X 2) Diabetes: No Endocrine: No Gastrointestinal Disorders: Yes (GERD, DIVERTICULITIS, HX GALLBADDER PAIN) GERD: Yes Genitourinary: No Hepatitis: No Hiatal Hernia: Yes Hypertension: Yes Immune Disorder: Yes (R/A) Musculoskeletal: Yes (R/A, KNEES) Neurologic: Yes (TIA IN THE 90'S) Psychiatric: Yes (DEPRESSION, ANXIETY) Reproductive: Yes (HYSTERECTOMY) Respiratory: Yes (MILD SLEEP APNEA) Immunizations Current: Yes Radiation Therapy: No Sleep Apnea: No Thyroid Disease: No Past Surgical History Abdominal Surgery: Yes (APPY / ABDOMINAL ADHESIONS) Appendectomy: Yes Gynecologic Surgery: Yes (HYSTERECTOMY) Hysterectomy: Yes Other Surgery: Yes (gastric bypass,hysterectomy,appendectomy) Social History Alcohol Use: Yes (RARE) Tobacco Use: No Substance Use: No Allergies-Medications (Allergen,Severity, Reaction): Coded Allergies: Sulfa (Sulfonamide Antibiotics) (Unverified Allergy, Severe, RASH, 03/07/18 ) metronidazole (Unverified Allergy, Severe, HEADACHE, 03/07/18) morphine (Unverified Allergy, Mild, Headache, 03/07/18) Reported Meds & Prescriptions Reported Meds & Active Scripts Active Zofran Odt (Ondansetron Odt) 4 Mg Tab 4 Mg SL Q6HR PRN Reported Lisinopril 10 Mg Tab 10 Mg PO DAILY Turmeric (Turmeric (Curcuma Longa)) Unknown Strength Cap 1 Cap PO HS Vitamin D3 (Cholecalciferol) 5,000 Unit Cap 10,000 Units PO DAILY Escitalopram (Escitalopram Oxalate) 20 Mg Tab 20 Mg PO DAILY Folic Acid 400 Mcg Tab 400 Mcg PO DAILY Methotrexate Inj 50 Mg/2 Ml Inj MONDAY Review of Systems Except as stated in HPI: all other systems reviewed are Neg Physical Exam Narrative GENERAL: Well-developed, painting, appears mildly uncomfortable but nontoxic peer SKIN: Focused skin assessment warm/dry. HEAD: Atraumatic. Normocephalic. EYES: Pupils equal and round. No scleral icterus. No injection or drainage. ENT: No nasal bleeding or discharge. Mucous membranes pink and moist. NECK: Trachea midline. No JVD. CARDIOVASCULAR: Regular rate and rhythm. No murmur appreciated. RESPIRATORY: No accessory muscle use. Clear to auscultation. Breath sounds equal bilaterally. GASTROINTESTINAL: Abdomen soft, non-tender, nondistended. Normal to hyper active bowel sounds, dull to percussion throughout all 4 quadrants, no rebound no percussive tenderness. Abdomen is very soft. hepatic and splenic margins not palpable. MUSCULOSKELETAL: No obvious deformities. No clubbing. No cyanosis. No edema. NEUROLOGICAL: Awake and alert. No obvious cranial nerve deficits. Motor grossly within normal limits. Normal speech. PSYCHIATRIC: Appropriate mood and affect; insight and judgment normal. Data Data Last Documented VS Vital Signs Date Time Temp Pulse Resp B/P (MAP) Pulse Ox O2 Delivery O2 Flow Rate FiO2 03/07/18 16:08 98.6 53 16 144/84 (104) 100 Orders Orders Complete Blood Count With Diff (03/07/18 16:27) Comprehensive Metabolic Panel (03/07/18 16:27) Lipase (03/07/18 16:27) Urinalysis - C+S If Indicated (03/07/18 16:27) Iv Access Insert/Monitor (03/07/18 16:27) Ecg Monitoring (03/07/18 16:27) Oximetry (03/07/18 16:27) Sodium Chlor 0.9% 1000 Ml Inj (Ns 1000 M (03/07/18 16:27) Sodium Chloride 0.9% Flush (Ns Flush) (03/07/18 16:30) Ondansetron Inj (Zofran Inj) (03/07/18 16:30) Abdomen, Upright Only (03/07/18 ) Ct Abd/Pel W Iv Contrast(Rout) (03/07/18 ) Oral Contrast - Adult (03/07/18 16:52) MDM Medical Decision Making Medical Screen Exam Complete: Yes Emergency Medical Condition: Yes Differential Diagnosis Bowel obstruction seems unlikely, nausea, vomiting, gastritis, cholecystitis, pancreatitis, Narrative Course Patient room to the emergency department, Zofran and fluids were ordered as well as basic labs. Patient will be discussed with Dr. Bhakta at 1700 shift change to follow-up labs continue workup as needed and disposition a properly. Shortly after the dictation of this note received a call from Dr. Guallpa he wants to get a CAT scan of this patient with PO and IV contrast. Condition: Stable Vishal Fenton MD Mar 07, 2018 16:33
[2018-03-07] MEDS ORDERED: LISI10TA3 PO (16:36)
--- NOTE | 2018-03-07 17:07 | RADRPT ---
EXAM DATE/TIME: 03/07/2018 16:44 [facility] COMPARISON: No previous studies available for comparison. INDICATIONS : Vomiting and nausea. MEDICAL HISTORY : Cardiovascular disease. Hypertension. Diverticulitis. Hiatal hernia. SURGICAL HISTORY : Appendectomy. Gastric bypass. Hysterectomy. ENCOUNTER: Initial ACUITY: 1 day PAIN SCORE: 4/10 LOCATION: Abdomen FINDINGS: A single erect view of the abdomen demonstrates the lower lungs to be clear. No evidence of free int raperitoneal gas. The visualized bowel loops are unremarkable. CONCLUSION: Normal examination. Suture overlies the stomach. Lenny Keita MD on March 07, 2018 at 17:04 Board Certified Radiologist. This report was verified electronically.
[2018-03-07 17:18] VITALS: RESP 16; O2SAT 98
[2018-03-07] MEDS ORDERED: DIATRIZOATE MEGLUM/DIATRIZOATE SOD 9 ML CUP ONE (17:20)
[2018-03-07 17:30] LABS: AUTOMATED NEUTROPHIL # 7.9 TH/MM3 (1.8-7.7); BASOPHIL % 0.3 % (0.0-2.0); EOSINOPHIL % 0.1 % (0.0-4.0); HEMATOCRIT 41.1 % (35.0-46.0); HEMOGLOBIN 14.3 GM/DL (11.6-15.3); LYMPH % 13.8 % (9.0-44.0); LYMPHOCYTE # 1.4 TH/MM3 (1.0-4.8); MEAN CELL VOLUME 94.9 FL (80.0-100.0); MEAN CORPUSCULAR HEMOGLOBIN 33.1 PG (27.0-34.0); MEAN CORPUSCULAR HGB CONC 34.8 % (32.0-36.0); MEAN PLATELET VOLUME 8.8 FL (7.0-11.0); MONO % 5.4 % (0.0-8.0); MONOCYTE # 0.5 TH/MM3 (0-0.9); NEUT % 80.4 % (16.0-70.0); PLATELET COUNT 237 TH/MM3 (150-450); RED BLOOD COUNT 4.33 MIL/MM3 (4.00-5.30); RED CELL DISTRIBUTION WIDTH 13.3 % (11.6-17.2); WHITE BLOOD COUNT 9.8 TH/MM3 (4.0-11.0)
[2018-03-07 17:45] LABS: AST (GOT) 23 U/L (15-37); BICARBONATE 22.5 MEQ/L (21.0-32.0); BLOOD UREA NITROGEN 15 MG/DL (7-18); CALCIUM 9.6 MG/DL (8.5-10.1); CHLORIDE 104 MEQ/L (98-107); CREATININE 1.15 MG/DL (0.50-1.00); GLOMERULAR FILTRATION RATE 48 ML/MIN (>89); GLUCOSE,RANDOM 135 MG/DL (74-106); SODIUM (NA) 137 MEQ/L (136-145)
[2018-03-07 17:49] LABS: ALKALINE PHOSPHATASE 130 U/L (45-117); ALT (GPT) 34 U/L (10-53); TOTAL BILIRUBIN ADULT 0.7 MG/DL (0.2-1.0)
[2018-03-07] MEDS ORDERED: PROMETHAZINE INJ 25 MG/ML VIAL IM ONE (18:15)
[2018-03-07] MEDS ORDERED: IOHEXOL 350 MG/ML 10 ML VIAL (for RAD DIAG) IVCONTRAST ONE (19:16)
--- NOTE | 2018-03-07 19:32 | RADRPT ---
EXAM DATE/TIME: 03/07/2018 19:05 [facility] COMPARISON: ABDOMEN UPRIGHT ONLY, March 07, 2018, 16:44. CT ABDOMEN & PELVIS W CONTRAST, May 15, 2017, 18:30. INDICATIONS : Abdomen pain. IV CONTRAST: 100 cc Omnipaque 350 (iohexol) IV ORAL CONTRAST: Patient refused oral contrast. RADIATION DOSE: 8.33 CTDIvol (mGy) MEDICAL HISTORY : Hypertension. Hernia, hiatal. SURGICAL HISTORY : Appendectomy. Hysterectomy.Gastric bypass. ENCOUNTER: Initial ACUITY: 1 day PAIN SCALE: 6/10 LOCATION: Bilateral abdomen. TECHNIQUE: Volumetric scanning of the abdomen and pelvis was performed. Using automated exposure control and ad justment of the mA and/or kV according to patient size, radiation dose was kept as low as reasonably achievable to obtain optimal diagnostic quality images. DICOM format image data is available electro nically for review and comparison. FINDINGS: LOWER LUNGS: The visualized lower lungs are clear. LIVER: Homogeneous density without lesion. There is no dilation of the biliary tree. No calcified gallston es. SPLEEN: Normal size without lesion. PANCREAS: Within normal limits. KIDNEYS: There is moderate right hydronephrosis to the level of the UPJ. Only mild prominence of the right ure ter. No stones seen but numerous vascular calcifications are seen in the pelvic cavity. There is mild right perinephric edema. There are unchanged benign cysts, 2.5 cm right upper pole and 1.2 cm left m id zone. No acute abnormality seen of the left kidney. ADRENAL GLANDS: Within normal limits. VASCULAR: There is no aortic aneurysm. BOWEL/MESENTERY: Gastric bypass changes are noted. No obstruction or acute inflammatory changes are seen of the GI tra ct. No or free fluid or free air. ABDOMINAL WALL: Within normal limits. RETROPERITONEUM: There is no lymphadenopathy. BLADDER: No wall thickening or mass. REPRODUCTIVE: Within normal limits. INGUINAL: There is no lymphadenopathy or hernia. MUSCULOSKELETAL: No acute bony abnormality. CONCLUSION: 1. Obstructed right kidney. Given the perinephric edema, this is thought to be acute/active. I don't see a definite stone but the sensitivity in detecting a distal right ureteral calculus is limited due to multiple phleboliths in the pelvic cavity. UPJ obstruction and radiolucent stone would be in the differential. 2. No obstruction or acute inflammatory changes are seen in the gastrointestinal tract. Previous maddie meka bypass. Wesley Falcon MD on March 07, 2018 at 19:21 Board Certified Radiologist. This report was verified electronically.
--- NOTE | 2018-03-07 20:23 | PD ---
Data Data Last Documented VS Vital Signs Date Time Temp Pulse Resp B/P (MAP) Pulse Ox O2 Delivery O2 Flow Rate FiO2 03/07/18 17:18 16 98 Room Air 03/07/18 16:08 98.6 53 144/84 (104) Orders Orders Complete Blood Count With Diff (03/07/18 16:27) Comprehensive Metabolic Panel (03/07/18 16:27) Lipase (03/07/18 16:27) Urinalysis - C+S If Indicated (03/07/18 16:27) Iv Access Insert/Monitor (03/07/18 16:27) Ecg Monitoring (03/07/18 16:27) Oximetry (03/07/18 16:27) Sodium Chlor 0.9% 1000 Ml Inj (Ns 1000 M (03/07/18 16:27) Sodium Chloride 0.9% Flush (Ns Flush) (03/07/18 16:30) Ondansetron Inj (Zofran Inj) (03/07/18 16:30) Abdomen, Upright Only (03/07/18 ) Ct Abd/Pel W Iv Contrast(Rout) (03/07/18 ) Oral Contrast - Adult (03/07/18 16:52) Diatrizoate Liq ( Gastroview Liq) (03/07/18 17:20) Promethazine Inj (Phenergan Inj) (03/07/18 18:15) Iohexol 350 Inj (Omnipaque 350 Inj) (03/07/18 19:16) Admit Order (Ed Use Only) (03/07/18 20:04) Labs Laboratory Tests Test 03/07/18 16:54 White Blood Count 9.8 TH/MM3 Red Blood Count 4.33 MIL/MM3 Hemoglobin 14.3 GM/DL Hematocrit 41.1 % Mean Corpuscular Volume 94.9 FL Mean Corpuscular Hemoglobin 33.1 PG Mean Corpuscular Hemoglobin Concent 34.8 % Red Cell Distribution Width 13.3 % Platelet Count 237 TH/MM3 Mean Platelet Volume 8.8 FL Neutrophils (%) (Auto) 80.4 % Lymphocytes (%) (Auto) 13.8 % Monocytes (%) (Auto) 5.4 % Eosinophils (%) (Auto) 0.1 % Basophils (%) (Auto) 0.3 % Neutrophils # (Auto) 7.9 TH/MM3 Lymphocytes # (Auto) 1.4 TH/MM3 Monocytes # (Auto) 0.5 TH/MM3 Eosinophils # (Auto) 0.0 TH/MM3 Basophils # (Auto) 0.0 TH/MM3 CBC Comment DIFF FINAL Differential Comment Blood Urea Nitrogen 15 MG/DL Creatinine 1.15 MG/DL Random Glucose 135 MG/DL Total Protein 7.0 GM/DL Albumin 4.0 GM/DL Calcium Level 9.6 MG/DL Alkaline Phosphatase 130 U/L Aspartate Amino Transf (AST/SGOT) 23 U/L Alanine Aminotransferase (ALT/SGPT) 34 U/L Total Bilirubin 0.7 MG/DL Sodium Level 137 MEQ/L Potassium Level 4.0 MEQ/L Chloride Level 104 MEQ/L Carbon Dioxide Level 22.5 MEQ/L Anion Gap 11 MEQ/L Estimat Glomerular Filtration Rate 48 ML/MIN Lipase 141 U/L MDM Supervised Visit with LUCIA: No Narrative Course Case is checked out to me at [address] Fenton. I have reviewed the entirety of the workup with the patient and answered her questions. Labs and urine reasonably normal. Creatinine 1.15. CT suggests right renal obstruction and shows right perinephric edema. No distinct stone is seen but there are a lot of calcifications in the region to confuse the matter. Her surgeon Dr. Guallpa has evaluated her in the ER and recommends admission with urologic consultation. I have reviewed with Dr. Carrera who will do this. Diagnosis Primary Impression: Hydronephrosis with renal and ureteral calculous obstruction Additional Impression: Abdominal pain Qualified Codes: R10.31 - Right lower quadrant pain Admitting Information Admitting Physician Requests: Admit Bud Galvan MD Mar 07, 2018 20:23
[2018-03-07] MEDS ORDERED: NALOXONE HCL 0.4 MG/ML AMP IV PUSH PRN (21:15)
[2018-03-07] MEDS ORDERED: MORPHINE SULFATE 2 MG/ML SYRINGE IV PUSH PRN (21:15)
[2018-03-07] MEDS ORDERED: MAGNESIUM HYDROXIDE SUSP 30 ML CUP PO PRN (21:15)
[2018-03-07] MEDS ORDERED: ONDANSETRON HCL 4 MG/2 ML VIAL IVP PRN (21:15)
[2018-03-07] MEDS ORDERED: SENNOSIDES 8.6 MG TAB PO PRN (21:15)
[2018-03-07] MEDS ORDERED: LACTULOSE SYRUP 20 GM/30 ML CUP PO PRN (21:15)
[2018-03-07] MEDS ORDERED: BISACODYL 10 MG SUPP RECTAL PRN (21:15)
--- NOTE | 2018-03-07 21:27 | HHI.HP ---
HPI Service [facility] Hospitalists Primary Care Physician Baltazar Smith MD Admission Diagnosis R flank pain, R perinephric edema/renal obstruction Chief Complaint: rt flank pain Travel History International Travel<30 Days: No Contact w/Intl Traveler <30 Da: No Traveled to Known Affected Are: No History of Present Illness Patient is a 62-year-old female with a history of small bowel obstructions and adhesions and a history of gastric bypass surgery followed by Dr. Guallpa seen presents emergency department for evaluation of some nausea and vomiting as well as some abdominal discomfort which started about an hour ago. Patient states that a friend called Dr. Guallpa's office and they referred her up here. Patient states that Dr. Guallpa performed a lysis of adhesions on her some months ago. She states the pain is predominantly on the right side radiates to her right flank, generalized weakness now she is just having dry heaves but before she was having production of food but no bile and no blood in the emesis. No diarrhea no constipation. No fevers. States symptoms are moderate, gradually worsening, associated signs and symptoms in context as above. Patient had CT scan abdomen showed Rt renal obstruction and rt perinephric edema and general surgery recommended Urology evaluation. Review of Systems Gastrointestinal: COMPLAINS OF: Abdominal pain Past Family Social History Past Medical History RA,htn,tia times 2,gerd,gb problems,depression Past Surgical History appendis,gastric bypass lysis of adhesions,hernia Reported Medications lisinopril 10,tumerics,vit d3,escitaloprim 20,folic acid,methotrexate q week Allergies: Coded Allergies: Sulfa (Sulfonamide Antibiotics) (Unverified Allergy, Severe, RASH, 03/07/18 ) metronidazole (Unverified Allergy, Severe, HEADACHE, 03/07/18) morphine (Unverified Allergy, Mild, Headache, 03/07/18) Social History NS,ND Physical Exam Vital Signs Vital Signs Date Time Temp Pulse Resp B/P (MAP) Pulse Ox O2 Delivery O2 Flow Rate FiO2 03/07/18 17:18 16 98 Room Air 03/07/18 16:08 98.6 53 16 144/84 (104) 100 Physical Exam GENERAL: This is a well-nourished, well-developed patient, in no apparent distress. SKIN: No rashes, ecchymoses or lesions. Cool and dry. HEAD: Atraumatic. Normocephalic. No temporal or scalp tenderness. EYES: Pupils equal round and reactive. Extraocular motions intact. No scleral icterus. No injection or drainage. ENT: Nose without bleeding, purulent drainage or septal hematoma. Throat without erythema, tonsillar hypertrophy or exudate. Uvula midline. Airway patent. NECK: Trachea midline. No JVD or lymphadenopathy. Supple, nontender, no meningeal signs. CARDIOVASCULAR: Regular rate and rhythm without murmurs, gallops, or rubs. RESPIRATORY: Clear to auscultation. Breath sounds equal bilaterally. No wheezes , rales, or rhonchi. GASTROINTESTINAL: Abdomen soft, mild-tender rt flank, nondistended. No hepato- splenomegaly, or palpable masses. No guarding. MUSCULOSKELETAL: Extremities without clubbing, cyanosis, or edema. No joint tenderness, effusion, or edema noted. No calf tenderness. Negative Homans sign bilaterally. NEUROLOGICAL: Awake and alert. Cranial nerves II through XII intact. Motor and sensory grossly within normal limits. Five out of 5 muscle strength in all muscle groups. Normal speech. Laboratory Laboratory Tests Test 03/07/18 16:54 White Blood Count 9.8 Red Blood Count 4.33 Hemoglobin 14.3 Hematocrit 41.1 Mean Corpuscular Volume 94.9 Mean Corpuscular Hemoglobin 33.1 Mean Corpuscular Hemoglobin Concent 34.8 Red Cell Distribution Width 13.3 Platelet Count 237 Mean Platelet Volume 8.8 Neutrophils (%) (Auto) 80.4 Lymphocytes (%) (Auto) 13.8 Monocytes (%) (Auto) 5.4 Eosinophils (%) (Auto) 0.1 Basophils (%) (Auto) 0.3 Neutrophils # (Auto) 7.9 Lymphocytes # (Auto) 1.4 Monocytes # (Auto) 0.5 Eosinophils # (Auto) 0.0 Basophils # (Auto) 0.0 CBC Comment DIFF FINAL Differential Comment Blood Urea Nitrogen 15 Creatinine 1.15 Random Glucose 135 Total Protein 7.0 Albumin 4.0 Calcium Level 9.6 Alkaline Phosphatase 130 Aspartate Amino Transf (AST/SGOT) 23 Alanine Aminotransferase (ALT/SGPT) 34 Total Bilirubin 0.7 Sodium Level 137 Potassium Level 4.0 Chloride Level 104 Carbon Dioxide Level 22.5 Anion Gap 11 Estimat Glomerular Filtration Rate 48 Lipase 141 Result Diagram: 03/07/18 1654 03/07/18 1654 Imaging Last 24 hours Impressions Abdomen/Pelvis CT 03/07/18 0000 Signed Impressions: Service Date/Time: Wednesday, March 07, 2018 19:05 - CONCLUSION: 1. Obstructed right kidney. Given the perinephric edema, this is thought to be acute/active. I don't see a definite stone but the sensitivity in detecting a distal right ureteral calculus is limited due to multiple phleboliths in the pelvic cavity. UPJ obstruction and radiolucent stone would be in the differential. 2. No obstruction or acute inflammatory changes are seen in the gastrointestinal tract. Previous gastric bypass. Wesley Falcon MD Abdomen X-Ray 03/07/18 0000 Signed Impressions: Service Date/Time: Wednesday, March 07, 2018 16:44 - CONCLUSION: Normal examination. Suture overlies the stomach. Lenny Keita MD Course in er given pain med Caprini VTE Risk Assessment Caprini VTE Risk Assessment: No/Low Risk (score <= 1) Caprini Risk Assessment Model Point Value = 1 Point Value = 2 Point Value = 3 Point Value = 5 Age 41-60 Minor surgery BMI > 25 kg/m2 Swollen legs Varicose veins or History of unexplained or recurrent spontaneous Oral contraceptives or hormone replacement Sepsis (< 1 month) Serious lung disease, including pneumonia (< 1 month) Abnormal pulmonary function Acute myocardial infarction Congestive heart failure (< 1 month) History of inflammatory bowel disease Medical patient at bed rest Age 61-74 Arthroscopic surgery Major open surgery (> 45 min) Laparoscopic surgery (> 45 min) Malignancy Confined to bed (> 72 hours) Immobilizing plaster cast Central venous access Age >= 75 History of VTE Family history of VTE Factor V Leiden Prothrombin [id number] Lupus anticoagulant Anticardiolipin antibodies Elevated serum homocysteine Heparin-induced thrombocytopenia Other congenital or acquired thrombophilia Stroke (< 1 month) Elective arthroplasty Hip, pelvis, or leg fracture Acute spinal cord injury (< 1 month) Prophylaxis Regimen Total Risk Factor Score Risk Level Prophylaxis Regimen 0-1 Low Early ambulation 2 Moderate Order ONE of the following: *Sequential Compression Device (SCD) *Heparin 5000 units SQ BID 3-4 Higher Order ONE of the following medications: *Heparin 5000 units SQ TID *Enoxaparin/Lovenox 40 mg SQ daily (WT < 150 kg, CrCl > 30 mL/min) *Enoxaparin/Lovenox 30 mg SQ daily (WT < 150 kg, CrCl > 10-29 mL/min) *Enoxaparin/Lovenox 30 mg SQ BID (WT < 150 kg, CrCl > 30 mL/min) AND/OR *Sequential Compression Device (SCD) 5 or more Highest Order ONE of the following medications: *Heparin 5000 units SQ TID (Preferred with Epidurals) *Enoxaparin/Lovenox 40 mg SQ daily (WT < 150 kg, CrCl > 30 mL/min) *Enoxaparin/Lovenox 30 mg SQ daily (WT < 150 kg, CrCl > 10-29 mL/min) *Enoxaparin/Lovenox 30 mg SQ BID (WT < 150 kg, CrCl > 30 mL/min) AND *Sequential Compression Device (SCD) Assessment and Plan Problem List: (1) Hydronephrosis with renal and ureteral calculous obstruction ICD Codes: N13.2 - Hydronephrosis with renal and ureteral calculous obstruction Status: Acute Plan: pain med ,nausea med prn ,consult urology (2) Rheumatoid arthritis ICD Codes: M06.9 - Rheumatoid arthritis, unspecified Status: Chronic Plan: stable uses med q week Assessment and Plan further plan pending urology evaluation Code Status full Discussed Condition With patient Physician Certification 2 Midnight Certification Type: Admission for Inpatient Services Order for Inpatient Services The services are ordered in accordance with Medicare regulations or non- Medicare payer requirements, as applicable. In the case of services not specified as inpatient-only, they are appropriately provided as inpatient services in accordance with the 2-midnight benchmark. Estimated LOS (days): 3 3 days is the estimated time the patient will need to remain in the hospital, assuming treatment plan goals are met and no additional complications. Post-Hospital Plan: Not yet determined Nathan Carrera MD Mar 07, 2018 21:27
[2018-03-07 22:10] VITALS: BP 91/46; PULSE 57; RESP 16; TEMP 98.8; O2SAT 95
[2018-03-07] MEDS: SODIUM CHLOR 0.45% 1000 ML INJ 1,000 ML IV SCH (22:11)
[2018-03-08 00:46] VITALS: BP 115/59; PULSE 70; RESP 16; TEMP 97.9; O2SAT 98
[2018-03-08 06:15] LABS: BILIRUBIN, URINE NEG (NEG); BLOOD, URINE MOD (NEG); GLUCOSE,URINE NEG (NEG); KETONE, URINE NEG (NEG); NITRITE,URINE NEG (NEG); PH, URINE 5.5 (5.0-8.5); RENAL EPITHELIAL CELLS <1 /hpf; SQUAMOUS EPITHELIAL CELL URINE <1 /hpf (0-5); TRANSITIONAL EPI CELLS, URINE <1 /hpf; URINE COLOR LIGHT-YELLOW (YELLW/STRAW); URINE LEUKOCYTE ESTERASE TRACE (NEG)
[2018-03-08 07:57] VITALS: BP 107/54; PULSE 65; RESP 18; TEMP 97.7; O2SAT 94
[2018-03-08] MEDS ORDERED: FOLIC ACID 1 MG TAB PO SCH (09:00)
[2018-03-08] MEDS: ESCITALOPRAM OXALATE 20 MG TAB PO SCH (09:00)
[2018-03-08] MEDS: DOCUSATE SODIUM 50 MG/SENNA 8.6 MG TAB PO SCH ×2 (09:00→19:52)
[2018-03-08] MEDS: SODIUM CHLORIDE 0.9% FLUSH 10 ML FLUSH IV FLUSH SCH ×2 (09:00→19:52)
[2018-03-08] MEDS: CHOLECALCIFEROL (VIT D3) 5000 UNIT CAP PO SCH (09:00)
[2018-03-08] MEDS: LISINOPRIL 10 MG TAB PO SCH (09:00)
[2018-03-08] MEDS: SODIUM CHLOR 0.45% 1000 ML INJ 1,000 ML IV SCH ×2 (10:20→13:59)
[2018-03-08] MEDS ORDERED: ACETAMINOPHEN 1000 MG/100 ML 100 ML IV ONE (10:39)
[2018-03-08] MEDS ORDERED: ceFAZolin INJ 1,000 MG VIAL IV ONE (12:10)
--- NOTE | 2018-03-08 12:15 | PD.OP ---
Operative Report Date of Surgery: Mar 08, 2018 Preoperative Diagnosis: Right hydroureteronephrosis with obstruction Postoperative Diagnosis: Right hydroureteronephrosis with mid ureteral filling defect Procedure: Cystoscopy, right retrograde pyelogram, right double-J stent insertion Anesthesia: General LMA Surgeon: Greg Vaughan Time Stamp Assembler(s): None Resident Surgeon: None Operation and Findings: 62-year-old female with history of gastric bypass surgery in the past who presented with abdominal pain to the emergency room last night. CT scan was performed demonstrating right-sided hydroureteronephrosis. Possible stone was thought to be identified in the mid ureter or the right UVJ. Decision was made to bring the patient to the operating room to undergo cystoscopy with right retrograde pyelogram and right double-J stent insertion. Risk and benefits were discussed preoperatively and she was willing to proceed. The patient was brought to the operating room and identified by myself as Yas Mckeon. She was placed in the dorsal lithotomy position, prepped and draped in usual sterile fashion, received preprocedure antibiotics and general LMA anesthesia was administered. 22 [place] cystoscope was inserted in the bladder luz cystoscopy did not reveal any abnormalities. The right ureteral orifice was identified and a 5 [place] opening catheter was inserted into the right ureteral orifice without difficulty. Retrograde pyelogram was then performed. A filling defect was noted in the mid ureter. A 0.35 sensor wire was then passed up into the kidney with a good curl. A 6 [place] 22 cm right double-J stent was then placed over the wire with a good curl in the kidney and the bladder. The stent was in good position and was draining. The bladder was evacuated and she tolerated the procedure well. The patient will follow up in the office in 2-4 weeks and obtain a CT scan without contrast prior. Greg Vuaghan DO Mar 08, 2018 12:15
--- NOTE | 2018-03-08 12:43 | MB ---
cc: Greg Vaughan DO DATE: 03/08/2018 DATE OF CONSULTATION: 03/08/2018 HISTORY OF PRESENT ILLNESS: Ms. Mckeon is a pleasant 62-year-old female who presented to the emergency room with abdominal pain radiating to her right flank. She denies any fever or chills. She has had a history of gastric bypass surgery in the past with lysis of adhesions, performed by Dr. Ashford. A CT scan was then performed in the Emergency Room which demonstrated right hydroureteronephrosis. According to the read, no stone could be determined. However, I thought I could see a stone in the possible mid-ureter or the distal right ureteral junction. She denies any prior history of stones. PAST MEDICAL HISTORY: Includes rheumatoid arthritis, hypertension, GERD, depression. PAST SURGICAL HISTORY: Appendectomy, gastric bypass surgery with lysis of adhesions, hernia repair. MEDICATIONS: Refer to the chart. ALLERGIES: SULFA, FLAGYL AND MORPHINE. SOCIAL HISTORY: Denies any smoking, drinking, or using drugs. FAMILY HISTORY: No history of stones. REVIEW OF SYSTEMS: Notes abdominal pain, right-sided flank pain. Denies fever or chills, gait disturbances, bleeding disorders. Does have a history of depression. Denies skin lesions. Denies neurologic symptoms. Denies voiding complaints. Denies hematuria. The remaining review of systems were reviewed and were negative. PHYSICAL EXAMINATION: VITAL SIGNS: Temperature is 97.7, heart rate 65, respiratory rate 18, 107/54 blood pressure, 94% on room air. GENERAL: A well-developed, well-nourished, 62-year-old female in no acute distress. HEENT: Normocephalic, atraumatic. Pupils equal, round, regular and reactive to light. Extraocular movements intact. NECK: Supple. HEART: Regular rate and rhythm. LUNGS: Clear. ABDOMEN: Soft. There is some right-sided CVA tenderness noted, right lower quadrant tenderness is noted. GENITOURINARY: Normal female external genitalia is noted. EXTREMITIES: Show no cyanosis, clubbing, or edema. NEUROLOGIC: Cranial nerves 2-12 are intact. LABORATORY DATA: White count 9.8, hemoglobin 14.3, hematocrit 41.4, platelet count of 237. Sodium 137, potassium 4.0, chloride 104, CO2 22.5, BUN 15, creatinine 1.1, glucose of 135. Urinalysis shows 4 red cells, leukocyte esterase is trace, moderate blood, nitrite negative. IMAGING STUDIES: Again imaging study was read as obstructed right kidney. No stone, but sensitivity in detecting a distal right ureteral catheterization is limited due to multiple phleboliths in the pelvic cavity is noted. UPJ obstruction and radiolucent stone would be in the differential. ASSESSMENT AND PLAN: A 62-year-old female with obstructed right kidney from possible stone in the mid-ureter versus distal right ureteropelvic junction. Recommend cystoscopy, right double-J stent insertion. Risks and benefits were discussed and she is willing to proceed. DO SHAHID Garcia/AARON , 12:20 PM , 12:43 PM
[2018-03-08] MEDS ORDERED: DO NOT ADM ANY ANTICOAGULANT DRUGS PRN (13:00)
[2018-03-08] MEDS: ACETAMINOPHEN 325 MG TAB PO PRN (14:02)
[2018-03-08 16:00] VITALS: BP 130/68; PULSE 65; RESP 18; TEMP 98.4; O2SAT 98
--- NOTE | 2018-03-08 16:29 | EKG ---
Date Performed: 03/08/2018 Time Performed: 11:23:48 PTAGE: 62 years EKG: Sinus rhythm POSSIBLE INFERIOR MYOCARDIAL INFARCTION , PROBABLY OLD BORDERLINE ECG PREVIOUS TRACING : 05/15/2017 17.09 Since the previous tracing, no significant change noted DOCTOR: Jameel Brown Interpretating Date/Time 03/08/2018 16:26:45
--- NOTE | 2018-03-08 17:17 | HHI.DCPOC ---
Discharge Care Plan Diagnosis: (1) Hydronephrosis with renal and ureteral calculous obstruction (2) Abdominal pain Goals to Promote Your Health * To prevent worsening of your condition and complications * To maintain your health at the optimal level Directions to Meet Your Goals Take your medications as prescribed Follow your dietary instruction Follow activity as directed Keep your appointments as scheduled Take your immunizations and boosters as scheduled If your symptoms worsen call your PCP, if no PCP go to Urgent Care Center or Emergency Room Smoking is Dangerous to Your Health. Avoid second hand smoke Call the 24-hour hour crisis hotline for domestic abuse at Maida Ghosh Mar 08, 2018 17:17 Taiwo Moran DO Mar 09, 2018 12:44
--- NOTE | 2018-03-08 17:23 | HHI.DS ---
Discharge Summary Admission Date Mar 07, 2018 at 20:09 Discharge Date: Mar 09, 2018 Admitting Diagnosis R flank pain, R perinephric edema/renal obstruction (1) Hydronephrosis with renal and ureteral calculous obstruction Diagnosis: Principal ICD Codes: N13.2 - Hydronephrosis with renal and ureteral calculous obstruction Status: Acute (2) Rheumatoid arthritis Diagnosis: Secondary ICD Codes: M06.9 - Rheumatoid arthritis, unspecified Status: Chronic Consultants Dr. Vaughan, Urology Procedures Cystoscopy, right retrograde pyelogram, right double-J stent insertion 03/08/[address] Vaughan Brief History Patient is a 62-year-old female with a history of small bowel obstructions and adhesions and a history of gastric bypass surgery followed by Dr. Guallpa seen presents emergency department for evaluation of some nausea and vomiting as well as some abdominal discomfort which started about an hour ago. Patient states that a friend called Dr. Guallpa's office and they referred her up here. Patient states that Dr. Guallpa performed a lysis of adhesions on her some months ago. She states the pain is predominantly on the right side radiates to her right flank, generalized weakness now she is just having dry heaves but before she was having production of food but no bile and no blood in the emesis. No diarrhea no constipation. No fevers. States symptoms are moderate, gradually worsening, associated signs and symptoms in context as above. Patient had CT scan abdomen showed Rt renal obstruction and rt perinephric edema and general surgery recommended Urology evaluation. CBC/BMP: 03/07/18 1654 03/07/18 1654 Significant Findings Laboratory Tests Test 03/07/18 16:54 03/08/18 05:45 Neutrophils (%) (Auto) 80.4 % (16.0-70.0) Neutrophils # (Auto) 7.9 TH/MM3 (1.8-7.7) Creatinine 1.15 MG/DL (0.50-1.00) Random Glucose 135 MG/DL (74-106) Alkaline Phosphatase 130 U/L (45-117) Estimat Glomerular Filtration Rate 48 ML/MIN (>89) Urine Occult Blood MOD (NEG) Urine Leukocyte Esterase TRACE (NEG) Urine RBC 10 /hpf (0-3) Imaging Last Impressions Abdomen/Pelvis CT 03/07/18 0000 Signed Impressions: Service Date/Time: Wednesday, March 07, 2018 19:05 - CONCLUSION: 1. Obstructed right kidney. Given the perinephric edema, this is thought to be acute/active. I don't see a definite stone but the sensitivity in detecting a distal right ureteral calculus is limited due to multiple phleboliths in the pelvic cavity. UPJ obstruction and radiolucent stone would be in the differential. 2. No obstruction or acute inflammatory changes are seen in the gastrointestinal tract. Previous gastric bypass. Wesley Falcon MD Abdomen X-Ray 03/07/18 0000 Signed Impressions: Service Date/Time: Wednesday, March 07, 2018 16:44 - CONCLUSION: Normal examination. Suture overlies the stomach. Lenny Keita MD PE at Discharge GENERAL: This is a well-nourished, well-developed patient, in no apparent distress. CARDIOVASCULAR: Regular rate and rhythm RESPIRATORY: Clear to auscultation. Breath sounds equal bilaterally. GASTROINTESTINAL: Abdomen soft, non-tender, nondistended. Normal active bowel sounds MUSCULOSKELETAL: Extremities without clubbing, cyanosis, or edema. NEURO: Alert & Oriented x4 to person, place, time, situation. Moves all ext x4 Hospital Course Hydronephrosis with renal and ureteral calculous obstruction CT abdomen/pelvis reviewed and reveals: Obstructed right kidney. Given the perinephric edema, this is thought to be acute/active. Sensitivity in detecting a distal right ureteral calculus is limited due to the multiple phleboliths in the pelvic cavity. UPJ obstruction and radiolucent stone would be in the differential. No obstruction or acute inflammatory changes are seen in the gastrointestinal tract. Previous gastric bypass pain med ,nausea med prn consult urology, appreciate input Cystoscopy, right retrograde pyelogram, right double-J stent insertion 03/08/[address] Clement Moran discussed case with Dr. Vaughan, per Dr. Vaughan patient is cleared for discharge from urological standpoint Rheumatoid arthritis stable uses med q week Pt Condition on Discharge: Stable Discharge Disposition: Discharge Home Discharge Instructions DIET: Follow Instructions for: Heart Healthy Diet Activities you can perform: Regular-No Restrictions Follow up Referrals: Nephrology - [address] Vaughan PCP Follow-up - [address] Baltazar Smith Continued Medications: Cholecalciferol (Vitamin D3) 5,000 Unit Cap 75195 UNITS PO DAILY for Nutritional Supplement, #1 BOTTLE 0 Refills Escitalopram (Escitalopram) 20 Mg Tab 20 MG PO DAILY, #30 TAB 0 Refills Folic Acid (Folic Acid) 400 Mcg Tab 400 MCG PO DAILY for Nutritional Supplement, TAB 0 Refills Lisinopril (Lisinopril) 10 Mg Tab 10 MG PO DAILY, #30 TAB 0 Refills Methotrexate Inj (Methotrexate Inj) 50 Mg/2 Ml Inj MONDAY Ondansetron Odt (Zofran Odt) 4 Mg Tab 4 MG SL Q6HR PRN for Nausea/Vomiting, #30 TAB 0 Refills Discontinued Medications: Turmeric (Curcuma Longa) (Turmeric) Unknown Strength Cap 1 CAP PO HS Additional Information Patient examined. Assessment and plan formulated with Maida Ghosh PA-C. I agree with the above. Maida Ghosh Mar 08, 2018 17:23 Taiwo Moran DO Mar 12, 2018 05:37
--- NOTE | 2018-03-08 18:01 | HHI.PR ---
Subjective Remarks Patient reports feeling much more comfortable than she did yesterday reports feeling, "still a little groggy," after anesthesia Objective Vitals Vital Signs Date Time Temp Pulse Resp B/P (MAP) Pulse Ox O2 Delivery O2 Flow Rate FiO2 03/08/18 16:00 98.4 65 18 130/68 (88) 98 03/08/18 12:40 66 14 134/64 (87) 100 Room Air 03/08/18 12:23 97.8 72 12 138/63 (88) 97 Room Air 03/08/18 07:57 97.7 65 18 107/54 (71) 94 03/08/18 00:46 97.9 70 16 115/59 (77) 98 03/07/18 22:10 98.8 57 16 91/46 (61) 95 03/08/18 03/08/18 03/09/18 15:00 23:00 07:00 Intake Total 946 ml 480 ml Balance 946 ml 480 ml Intake Oral 480 ml IV Total 946 ml # Voids 1 # Bowel Movements 0 Result Diagram: 03/07/18 1654 03/07/18 1654 Imaging Last 24 hours Impressions Abdomen/Pelvis CT 03/07/18 0000 Signed Impressions: Service Date/Time: Wednesday, March 07, 2018 19:05 - CONCLUSION: 1. Obstructed right kidney. Given the perinephric edema, this is thought to be acute/active. I don't see a definite stone but the sensitivity in detecting a distal right ureteral calculus is limited due to multiple phleboliths in the pelvic cavity. UPJ obstruction and radiolucent stone would be in the differential. 2. No obstruction or acute inflammatory changes are seen in the gastrointestinal tract. Previous gastric bypass. Wesley Falcon MD Abdomen X-Ray 03/07/18 0000 Signed Impressions: Service Date/Time: Wednesday, March 07, 2018 16:44 - CONCLUSION: Normal examination. Suture overlies the stomach. Lenny Keita MD Objective Remarks GENERAL: This is a well-nourished, well-developed patient, in no apparent distress. CARDIOVASCULAR: Regular rate and rhythm RESPIRATORY: Clear to auscultation. Breath sounds equal bilaterally. GASTROINTESTINAL: Abdomen soft, non-tender, nondistended. Normal active bowel sounds MUSCULOSKELETAL: Extremities without clubbing, cyanosis, or edema. NEURO: Alert & Oriented x4 to person, place, time, situation. Moves all ext x4 Procedures Cystoscopy, right retrograde pyelogram, right double-J stent insertion 03/08/[address] Vaughan A/P Problem List: (1) Hydronephrosis with renal and ureteral calculous obstruction ICD Codes: N13.2 - Hydronephrosis with renal and ureteral calculous obstruction Status: Acute Plan: CT abdomen/pelvis reviewed and reveals: Obstructed right kidney. Given the perinephric edema, this is thought to be acute/active. Sensitivity in detecting a distal right ureteral calculus is limited due to the multiple phleboliths in the pelvic cavity. UPJ obstruction and radiolucent stone would be in the differential. No obstruction or acute inflammatory changes are seen in the gastrointestinal tract. Previous gastric bypass pain med ,nausea med prn consult urology, appreciate input Cystoscopy, right retrograde pyelogram, right double-J stent insertion 03/08/[address] Clement Moran discussed case with Dr. Vaughan, per Dr. Vaughan patient is cleared for discharge from urological standpoint Plan to DC patient tomorrow AM if she remains stable (2) Rheumatoid arthritis ICD Codes: M06.9 - Rheumatoid arthritis, unspecified Status: Chronic Plan: stable uses med q week Assessment and Plan Patient examined. Assessment and plan formulated with Maida Ghosh PA-C. I agree with the above. Pt's pain is controlled. Will observe overnight. Anticipate d/c to home 03/09/18 Maida Ghosh Mar 08, 2018 18:01 Taiwo Moran DO Mar 09, 2018 12:44
[2018-03-08 20:00] VITALS: BP 116/54; PULSE 78; RESP 18; TEMP 98.5; O2SAT 95
[2018-03-08] MEDS ORDERED: NON-FORMULARY DRUG (Turmeric (Curcuma Longa) (Turmeric) 1 CAP) PO SCH (21:00)
[2018-03-09] VITALS: BP 101/60; PULSE 62; RESP 18; TEMP 98.1; O2SAT 97
[2018-03-09 04:00] VITALS: BP 148/78; PULSE 60; RESP 18; TEMP 98; O2SAT 98
[2018-03-09 07:46] VITALS: BP 117/66; PULSE 61; RESP 18; TEMP 98.2; O2SAT 99
[2018-03-09] MEDS: ACETAMINOPHEN 325 MG TAB PO PRN (10:56)
[2018-03-09] MEDS: CHOLECALCIFEROL (VIT D3) 5000 UNIT CAP PO SCH (10:56)
[2018-03-09] MEDS: SODIUM CHLORIDE 0.9% FLUSH 10 ML FLUSH IV FLUSH SCH (10:57)
[2018-03-09] MEDS: LISINOPRIL 10 MG TAB PO SCH (10:57)
[2018-03-09] MEDS: SODIUM CHLOR 0.45% 1000 ML INJ 1,000 ML IV SCH (10:57)
[2018-03-09] MEDS: ESCITALOPRAM OXALATE 20 MG TAB PO SCH (10:57)
[2018-03-09] MEDS: DOCUSATE SODIUM 50 MG/SENNA 8.6 MG TAB PO SCH (10:57)
[2018-03-09 12:00] VITALS: BP 129/81; PULSE 60; RESP 18; TEMP 97.8; O2SAT 100
[2018-03-09 12:49] LABS: AUTOMATED NEUTROPHIL # 3.6 TH/MM3 (1.8-7.7); BASOPHIL % 0.7 % (0.0-2.0); EOSINOPHIL # 0.1 TH/MM3 (0-0.4); EOSINOPHIL % 1.2 % (0.0-4.0); HEMATOCRIT 33.9 % (35.0-46.0); LYMPH % 32.4 % (9.0-44.0); LYMPHOCYTE # 1.9 TH/MM3 (1.0-4.8); MEAN CELL VOLUME 95.7 FL (80.0-100.0); MEAN CORPUSCULAR HEMOGLOBIN 33.9 PG (27.0-34.0); MEAN CORPUSCULAR HGB CONC 35.4 % (32.0-36.0); MEAN PLATELET VOLUME 8.7 FL (7.0-11.0); MONO % 5.8 % (0.0-8.0); MONOCYTE # 0.3 TH/MM3 (0-0.9); NEUT % 59.9 % (16.0-70.0); PLATELET COUNT 192 TH/MM3 (150-450); RED BLOOD COUNT 3.54 MIL/MM3 (4.00-5.30); RED CELL DISTRIBUTION WIDTH 13.3 % (11.6-17.2)
== END 2018-03-09 15:00 | disposition home or self-care (01) | DRG 694 ==
LOC: NEPD 15:47 → NEDA 20:09 → N06B 21:50
PROVIDERS: ADMIT Hospitalist; ATTEND Hospitalist
PROC: 0T788DZ Dilation of Bilateral Ureters with Intraluminal Device, Via Natural or Artificial Opening Endoscopic (ICD-10-PCS; 2018-03-08)
PROC: BT1DZZZ Fluoroscopy of Right Kidney, Ureter and Bladder (ICD-10-PCS; principal; 2018-03-08 11:34)
DX: N13.2 Hydronephrosis with renal and ureteral calculous obstruction (principal); I10 Essential (primary) hypertension; K21.9 Gastro-esophageal reflux disease without esophagitis; F32.9 Major depressive disorder, single episode, unspecified; M06.9 Rheumatoid arthritis, unspecified; Z98.84 Bariatric surgery status; Z86.73 Personal history of transient ischemic attack (TIA), and cerebral infarction without residual deficits; Z88.2 Allergy status to sulfonamides; Z88.8 Allergy status to other drugs, medicaments and biological substances
CPT/HCPCS: 74018; 74177; 74420; 80053; 81001; 83690; 85025; 93005; 96372; 96374; C1769; C2617; J0131; J0690; J2405; J2550; J3010; J7030; Q9963; Q9967